=== PATIENT | male | born 1960 | race Caucasian/White ===

== ENCOUNTER 2017-07-30 14:02 | Emergency (ER) | payer BC ==
[2017-07-30 15:42] LABS: ABS Basophils 0 10^3/ul (0-0.2); ABS Eosinophils 0.2 10^3/ul (0-0.6); ABS Lymphocytes 1.5 10^3/ul (1.0-4.8); ABS Monocytes 0.6 10^3/ul (0-0.8); ABS Neutrophils 6.5 10^3/ul (1.5-7.7); ABS Nucleated RBC 0 10^3/ul; Eosinophil % 2.2 % (0-6); Hematocrit 41 % (42-52); Hemoglobin 13.8 g/dl (14.0-18.0); Lymphocyte % 16.6 % (25-47); Mean Corpuscular HGB Conc 34 g/dl (31-36); Mean Corpuscular Hemoglobin 29 pg (27-31); Mean Corpuscular Volume 87 fL (80-94); Mean Platelet Volume 9 um3 (7.4-10.4); Nucleated Red Blood Cells % 0.1; Platelet Count 289 10^3/ul (150-450); Red Blood Count 4.72 10^6/ul (4.0-5.4); Red Cell Distribution Width 13 % (10.5-15); White Blood Count 8.8 10^3/ul (3.5-10.8)
[2017-07-30 16:07] LABS: INR 0.89 (0.77-1.02)
[2017-07-30 16:19] LABS: EGFR Non-African American 28.4 (>60)
[2017-07-30] MEDS ORDERED: NS 0.9% 1000 ML* 1,000 ML IV ONE (16:49)
[2017-07-30 17:24] LABS: Urine Appearance Clear; Urine Blood Negative (Negative); Urine Color Yellow; Urine Ketones Negative (Negative); Urine Protein 2+(100 mg/dL) (Negative); Urine Urobilinogen Negative (Negative)
--- NOTE | 2017-07-30 19:19 | ED ---
Dat Vazquez Gabriel, scribed for Gomez Ray MD on 07/30/17 at 1519 . Hypertension - HPI Summary HPI Summary: This patient is a 56 year old M presenting to [facility] with a chief complaint of feeling slightly dizzy and 'off' since this 1000 this morning. On his way to work stopped ate as he stood up to leave he felt light headed. Patient reports flushed face, light headedness, and racing heart described as palpitations. He denies SOB, vision changes, and CP. He drove to [employer] and used the machine to test his blood pressure. It gave him a reading of 180/90 and told him to come to the emergency room. Additionally he reports aphasia that was similar to an episode he had when he had a complex migraine years ago. Recently he had a BP medication change and it has not controlled his BP that well. He is a IDDM and had a blood glucose of 100 at the time of the episode. - History of Current Complaint Chief Complaint: EDNeurologicalDeficit Stated Complaint: DIZINESS Hx Obtained From: Patient Onset/Duration: Started Hours Ago, Still Present Timing: Constant Reported Blood Pressure Prior To Arrival: 180/90 Associated Signs & Symptoms: Negative - SOB, vision changes, and CP, Other: - flushed face, light headedness, and racing heart described as palpitations - Allergies/Home Medications Allergies/Adverse Reactions: Allergies Allergy/AdvReac Type Severity Reaction Status Date / Time No Known Allergies Allergy Verified 02/22/15 11:05 Home Medications: Home Medications Albuterol inh POWDER (NF) [Proair Respiclick] 1 - 2 puff PO Q6HR PRN 07/30/17 [ History Confirmed 07/30/17] Aspirin EC Low Dose* [Ecotrin EC Low Dose 81 MG*] 162 mg PO DAILY 07/30/17 [ History Confirmed 07/30/17] Atenolol TAB* [Tenormin TAB* 25 MG] 75 mg PO DAILY 07/30/17 [History Confirmed 07/30/17] Atorvastatin* [Lipitor*] 80 mg PO DAILY 07/30/17 [History Confirmed 07/30/17] Cholecalciferol TAB* [Vitamin D TAB*] 2,000 units PO DAILY 07/30/17 [History Confirmed 07/30/17] Hydrochlorothiazide TAB* [Hydrodiuril TAB*] 25 mg PO QAM 07/30/17 [History Confirmed 07/30/17] Insulin ASPART (NF) [Novolog (NF)] 100 unit SUBCUT DAILY 07/30/17 [History Confirmed 07/30/17] Neomycin/Polymy/Dex OPHTH.OIN* [Maxitrol 0.1% Opth*] 1 applic BOTH EYES DAILY [History Confirmed 07/30/17] Quinapril (NF) [Accupril (NF)] 40 mg PO BID 07/30/17 [History Confirmed 07/30/17 ] Sildenafil (NF) [Viagra (NF)] 50 - 100 mg PO DAILY PRN 07/30/17 [History Confirmed 07/30/17] Silodosin(NF) [Rapaflo(NF)] 4 mg PO DAILY 07/30/17 [History Confirmed 07/30/17] Temazepam CAP* [Restoril CAP*] 15 - 30 mg PO QPM PRN 07/30/17 [History Confirmed 07/30/17] amLODIPine TAB* [Norvasc 5 mg TAB*] 5 mg PO QPM 07/30/17 [History Confirmed 03/09] PMH/Surg Hx/FS Hx/Imm Hx Endocrine/Hematology History: Reports: Hx Diabetes Cardiovascular History: Reports: Hx Hypertension Denies: Hx Pacemaker/ICD History: Reports: Hx Renal Disease Sensory History: Denies: Hx Hearing Aid Psychiatric History: Denies: Hx Panic Disorder - Surgical History Surgery Procedure, Year, and Place: VITRECTOMY FOR DIABETES - Immunization History Date of Tetanus Vaccine: UTD Date of Influenza Vaccine: 04/2017 Infectious Disease History: No Infectious Disease History: Denies: Traveled Outside the [place] in Last 30 Days - Family History Known Family History: Positive: Hypertension, Diabetes Negative: Respiratory Disease - Social History Occupation: Employed Full-time Alcohol Use: Rare Substance Use Type: Reports: None Hx Tobacco Use: No Smoking Status (MU): Never Smoked Tobacco Review of Systems Negative: Blurred Vision Positive: Palpitations. Negative: Chest Pain Negative: Shortness Of Breath Positive: Other - flushed face Neurological: Other - light headness, aphasia All Other Systems Reviewed And Are Negative: Yes Physical Exam - Summary Physical Exam Summary: Appearance: Well-appearing, Well-nourished Skin: Warm Eyes: Normal, EOMI, PERRL ENT: Mild flushing of the face Neck: Supple, nontender Respiratory: Clear to auscultation Cardiovascular: Normal s1s2 no murmurs Abdomen: Soft, nontender Musculoskeletal: Normal, Strength/ROM Intact Neurological: Normal, A&Ox3, cranial nerves 2-12 intact Psychiatric: Normal Triage Information Reviewed: Yes Vital Signs On Initial Exam: Initial Vitals Temp Pulse Resp BP Pulse Ox 97.3 F 81 16 172/82 98 07/30/17 14:05 07/30/17 14:05 07/30/17 14:05 07/30/17 14:05 07/30/17 14:05 Vital Signs Reviewed: Yes - Daniela Coma Scale Coma Scale Total: 15 Diagnostics - Vital Signs Vital Signs Temp Pulse Resp BP Pulse Ox 07/30/17 14:22 81 17 97 07/30/17 14:21 150/73 07/30/17 14:05 97.3 F 81 16 172/82 98 - Laboratory Lab Results: Lab Results 07/30/17 07/30/17 07/30/17 Range/Units 15:30 15:30 15:30 WBC (3.5-10.8) 10^3/ul RBC (4.0-5.4) 10^6/ul Hgb (14.0-18.0) g/dl Hct (42-52) % MCV (80-94) fL MCH (27-31) pg MCHC (31-36) g/dl RDW (10.5-15) % Plt Count (150-450) 10^3/ul MPV (7.4-10.4) um3 Neut % (Auto) (38-83) % Lymph % (Auto) (25-47) % Garvin % (Auto) (1-9) % Eos % (Auto) (0-6) % Baso % (Auto) (0-2) % Absolute Neuts (auto) (1.5-7.7) 10^3/ul Absolute Lymphs (auto) (1.0-4.8) 10^3/ul Absolute Monos (auto) (0-0.8) 10^3/ul Absolute Eos (auto) (0-0.6) 10^3/ul Absolute Basos (auto) (0-0.2) 10^3/ul Absolute Nucleated RBC 10^3/ul Nucleated RBC % INR (Anticoag Therapy) 0.89 (0.77-1.02) APTT 31.6 (26.0-36.3) seconds Sodium 133 (133-145) mmol/L Potassium 5.1 H (3.5-5.0) mmol/L Chloride 99 L (101-111) mmol/L Carbon Dioxide 28 (22-32) mmol/L Anion Gap 6 (2-11) mmol/L BUN 39 H (6-24) mg/dL Creatinine 2.38 H (0.67-1.17) mg/dL Est GFR ( Amer) 36.5 (>60) Est GFR (Non-Af Amer) 28.4 (>60) BUN/Creatinine Ratio 16.4 (8-20) Glucose 260 H (70-100) mg/dL Calcium 8.5 L (8.6-10.3) mg/dL Magnesium 1.9 (1.9-2.7) mg/dL Total Bilirubin 0.30 (0.2-1.0) mg/dL AST 21 (13-39) U/L ALT 29 (7-52) U/L Alkaline Phosphatase 81 (34-104) U/L Troponin I 0.01 (<0.04) ng/mL Total Protein 6.7 (6.4-8.9) g/dL Albumin 3.7 (3.2-5.2) g/dL Globulin 3.0 (2-4) g/dL Albumin/Globulin Ratio 1.2 (1-3) Triglycerides 395 mg/dL Cholesterol 166 mg/dL LDL Cholesterol 62 mg/dL HDL Cholesterol 25.2 mg/dL Urine Color Urine Appearance Urine pH (5-9) Ur Specific Holton (1.010-1.030) Urine Protein (Negative) Urine Ketones (Negative) Urine Blood (Negative) Urine Nitrate (Negative) Urine Bilirubin (Negative) Urine Urobilinogen (Negative) Ur Leukocyte Esterase (Negative) Urine WBC (Auto) (Absent) Urine RBC (Auto) (Absent) Urine Bacteria (Absent) Urine Glucose (Negative) Urine Ascorbic Acid (Negative) Blood Type A Positive Antibody Screen Negative 07/30/17 07/30/17 07/30/17 Range/Units 15:30 17:05 17:55 WBC 8.8 (3.5-10.8) 10^3/ul RBC 4.72 (4.0-5.4) 10^6/ul Hgb 13.8 L (14.0-18.0) g/dl Hct 41 L (42-52) % MCV 87 (80-94) fL MCH 29 (27-31) pg MCHC 34 (31-36) g/dl RDW 13 (10.5-15) % Plt Count 289 (150-450) 10^3/ul MPV 9 (7.4-10.4) um3 Neut % (Auto) 74.2 (38-83) % Lymph % (Auto) 16.6 L (25-47) % Garvin % (Auto) 6.8 (1-9) % Eos % (Auto) 2.2 (0-6) % Baso % (Auto) 0.2 (0-2) % Absolute Neuts (auto) 6.5 (1.5-7.7) 10^3/ul Absolute Lymphs (auto) 1.5 (1.0-4.8) 10^3/ul Absolute Monos (auto) 0.6 (0-0.8) 10^3/ul Absolute Eos (auto) 0.2 (0-0.6) 10^3/ul Absolute Basos (auto) 0 (0-0.2) 10^3/ul Absolute Nucleated RBC 0 10^3/ul Nucleated RBC % 0.1 INR (Anticoag Therapy) (0.77-1.02) APTT (26.0-36.3) seconds Sodium 135 (133-145) mmol/L Potassium 4.0 (3.5-5.0) mmol/L Chloride 101 (101-111) mmol/L Carbon Dioxide 28 (22-32) mmol/L Anion Gap 6 (2-11) mmol/L BUN 39 H (6-24) mg/dL Creatinine 2.34 H (0.67-1.17) mg/dL Est GFR ( Amer) 37.3 (>60) Est GFR (Non-Af Amer) 29.0 (>60) BUN/Creatinine Ratio 16.7 (8-20) Glucose 197 H (70-100) mg/dL Calcium 8.7 (8.6-10.3) mg/dL Magnesium (1.9-2.7) mg/dL Total Bilirubin (0.2-1.0) mg/dL AST (13-39) U/L ALT (7-52) U/L Alkaline Phosphatase (34-104) U/L Troponin I (<0.04) ng/mL Total Protein (6.4-8.9) g/dL Albumin (3.2-5.2) g/dL Globulin (2-4) g/dL Albumin/Globulin Ratio (1-3) Triglycerides mg/dL Cholesterol mg/dL LDL Cholesterol mg/dL HDL Cholesterol mg/dL Urine Color Yellow Urine Appearance Clear Urine pH 7.0 (5-9) Ur Specific Holton 1.010 (1.010-1.030) Urine Protein 2+(100 mg/dl) H (Negative) Urine Ketones Negative (Negative) Urine Blood Negative (Negative) Urine Nitrate Negative (Negative) Urine Bilirubin Negative (Negative) Urine Urobilinogen Negative (Negative) Ur Leukocyte Esterase Negative (Negative) Urine WBC (Auto) Absent (Absent) Urine RBC (Auto) Absent (Absent) Urine Bacteria Absent (Absent) Urine Glucose 3+(>=500 mg/dl) H (Negative) Urine Ascorbic Acid * H (Negative) Blood Type Antibody Screen Result Diagrams: 07/30/17 15:30 07/30/17 17:55 Lab Statement: Any lab studies that have been ordered have been reviewed, and results considered in the medical decision making process. - EKG 15:20 Cardiac Rate: NL EKG Rhythm: Sinus Rhythm - at [address] Segment: Normal Ectopy: None Hypertension Course/Dx - Course Assessment/Plan: blood pressures improved without medications here in ED, pt seen to have worsening CKD secondary to diabetes. Pt is aware of kidney issues, potassium corrected with IV fluids. Pt in no acute distress, has driver/guide appointment coming up soon and PMD appointment as well. Hospitalist team and I agreed that degree of kidney injury is consistent with chronic progressive patten, does not require acute treatment in light of normal electrolytes and improving blood pressures, pt agrees to and understands dc instructinos - Diagnoses Provider Diagnoses: Hypertension, Chronic kidney disease Discharge - Discharge Plan Condition: Improved Disposition: HOME Patient Education Materials: Diabetic Kidney Disease (ED) Referrals: Presley Pantoja MD [Primary Care Provider] - Additional Instructions: PLEASE MONITOR SUGARS CLOSELY AND GO TO PRIMARY CARE AND NEPHROLOGY APPOINTMENTS ALREADY SCHEDULED PLEASE RETURN IMMEDIATELY TO THE ER IF YOU HAVE ANY WORSENING OR CONCERNING SYMPTOMS PLEASE MAKE AN APPOINTMENT TO BE SEEN BY YOUR PRIMARY CARE DOCTOR WITHIN 1 WEEK The documentation as recorded by the Dat domínguez Gabriel accurately reflects the service I personally performed and the decisions made by me, Gomez Ray MD.
[2017-07-30 19:27] VITALS: BP 142/76
== END 2017-07-30 19:27 | disposition home or self-care (01) ==
LOC: ED 14:02
DX: I12.9 Hypertensive chronic kidney disease with stage 1 through stage 4 chronic kidney disease, or unspecified chronic kidney disease (principal); N18.9 Chronic kidney disease, unspecified; R06.02 Shortness of breath; R07.9 Chest pain, unspecified; R42 Dizziness and giddiness; R00.2 Palpitations
CPT/HCPCS: 36415; 80048; 80053; 80061; 81003; 81015; 83735; 84484; 85025; 85610; 85730; 86850; 86900; 86901; 93005; 96360; 99282

== ENCOUNTER 2019-01-20 19:00 | Inpatient (IN) | payer BC ==
--- OUTSIDE RECORDS SUMMARY | 2019-01-20 19:24 | XMS REPORT | Continuity of Care Document ---
:1960 External Reference #:[id number] Author Name Jaja Aparicio Care Team Providers Name Role Phone Presley Pantoja MD Primary Care Physician Unavailable Payers Date Identification Numbers Payment Provider Subscriber Policy Number: [id number] [facility] Erika Howe PayID: [id number] [address] [place] [address] Problems Active Problems Provider Date Multiple complications of type 1 diabetes Vamsi Guevara MD Onset: 12/13/2018 mellitus Cellulitis of right toe Vamsi Guevara MD Onset: 12/13/2018 Family History Date Family Member(s) Observation Comments General Heart Disease General Hypertension General Stroke General Cancer General Rheumatoid Arthritis Father Congestive Heart Failure (CHF) Father Alzheimer's Disease Mother Cancer Mother Arthritis First Brother Diabetes Social History Type Date Description Comments Sex Unknown Marital Status Lives With Spouse Occupation Currently Working ETOH Use Denies alcohol use Tobacco Use Start: Unknown Patient has never smoked Smoking Status Reviewed: 01/06/19 Patient has never smoked Exercise Type/Frequency Exercises sporadically Allergies, Adverse Reactions, Alerts Description No Known Drug Allergies Medications Active Medications SIG Qnty Indications Ordering Date Provider Amoxicillin/Clavulanate 1 tab by mouth 42tabs Mk D. 01/06/2019 Potassium two times per Krissy Stewart 500-125mg Tablets day Vascepa 2 a day Unknown 1gm Capsules Atenolol one a day Unknown 25mg Tablets Rapaflo one a day Unknown 4mg Capsules Vitamin D High Potency 1 by mouth Unknown 1000Unit every day Capsules Novolog use as directed Unknown 100Unit/ML Solution Atorvastatin Calcium 2 times a day Unknown 80mg Tablets Viagra as needed Unknown 100mg Tablets Aspirin 81 one a day Unknown 81mg Tablets DR Hydrochlorothiazide one a day Unknown 25mg Tablets Quinapril HCL 2 times a day. Unknown 40mg Tablets History Medications Amoxicillin/Clavulanate Take 1 Tablet Shamar Sharma, 01/04/2019 - Potassium By Mouth Two 01/06/2019 875-125mg Tablets Times Daily Amoxicillin/Clavulanate 1 tab by 60tabs L03.03 Mk Montero 12/06/2018 - Potassium mouth two 1 Drewquebeba, 01/05/2019 500-125mg Tablets times per day M.DFernando Augmentin one twice a Unknown - 875-125mg Tablets day with food 11/04/2018 Neomycin/Polymyxin/Dexamethaso Unknown - ne 10/23/2018 [id number] Suspension Temazepam Unknown - 15mg Capsules Unknown Vital Signs Date Vital Result Comment 01/06/2019 4:12pm Height 69.5 inches 5'9.50" Weight 208.00 lb Heart Rate 78 /min BP Systolic Sitting 146 mmHg BP Diastolic Sitting 80 mmHg Respiratory Rate 14 /min Body Temperature 98.0 F BMI (Body Mass Index) 30.3 kg/m2 12/13/2018 1:11pm Height 69.5 inches 5'9.50" Weight 206.00 lb Heart Rate 71 /min BP Systolic Sitting 151 mmHg BP Diastolic Sitting 79 mmHg O2 % BldC Oximetry 96 % room air BMI (Body Mass Index) 30.0 kg/m2 12/13/2018 9:50am Height 69.5 inches 5'9.50" Weight 208.00 lb Heart Rate 80 /min BP Systolic 116 mmHg BP Diastolic 80 mmHg Respiratory Rate 18 /min Body Temperature 98.3 F Pain Level 5 BMI (Body Mass Index) 30.3 kg/m2 12/12/2018 11:21am Height 69.5 inches 5'9.50" Weight 208.50 lb Heart Rate 72 /min BP Systolic Sitting 126 mmHg BP Diastolic Sitting 78 mmHg Respiratory Rate 14 /min Body Temperature 97.6 F BMI (Body Mass Index) 30.3 kg/m2 12/06/2018 11:40am Height 69.5 inches 5'9.50" Weight 205.50 lb Heart Rate 72 /min BP Systolic Sitting 150 mmHg BP Diastolic Sitting 78 mmHg Respiratory Rate 14 /min Body Temperature 97.3 F BMI (Body Mass Index) 29.9 kg/m2 11/05/2018 8:01am Height 69.5 inches 5'9.50" Weight 207.00 lb Heart Rate 72 /min BP Systolic Sitting 128 mmHg BP Diastolic Sitting 74 mmHg Respiratory Rate 14 /min Body Temperature 98.0 F BMI (Body Mass Index) 30.1 kg/m2 10/29/2018 7:58am Height 69.5 inches 5'9.50" Weight 209.00 lb Heart Rate 70 /min BP Systolic Sitting 130 mmHg BP Diastolic Sitting 70 mmHg Respiratory Rate 14 /min Body Temperature 97.6 F BMI (Body Mass Index) 30.4 kg/m2 2018 3:31pm Height 69.5 inches 5'9.50" Weight 213.25 lb Heart Rate 84 /min BP Systolic Sitting 128 mmHg BP Diastolic Sitting 70 mmHg Respiratory Rate 14 /min Body Temperature 97.6 F BMI (Body Mass Index) 31.0 kg/m2 Results Test Date Facility Test Result H/L Range Note Laboratory test 01/03/2019 [facility] Tissue Culture SEE RESULT 1, [address] [place] [address] [phone] Laboratory test 01/03/2019 [facility] Tissue Culture SEE RESULT 3, [address] [place] [address] [phone] Surgical Pathology SEE RESULT BELOW 5 Abo/RH Type 12/24/2018 [facility] Patient Blood A Positive [address] [place] [address] [phone] Laboratory test 12/24/2018 [facility] Hemoglobin A1c 10.4 % High 4.0- [address] (Glyco HGB) 5.6 [place] [address] [phone] Laboratory test 12/24/2018 [facility] Urine TP 207 mg/dL finding [address] [place] [address] [phone] Urine 12/24/2018 [facility] Urine Creatinine 69.57 mg/dL Microalbumin [address] [place] [address] [phone] Ur Microalbumin (mg/L) 1277.0 mg/L Urine Microalbumin/Creatinine 1835.5 High <31 Laboratory test 12/24/2018 [facility] Urine Creatinine 78.14 mg/ dL finding [address] [place] [address] [phone] Creatinine 24HR 12/24/2018 [facility] Urine Collection 24 hr Urine [address] [place] [address] [phone] Urine Total Volume 2250 mL Urine Creatinine/24 Hour 1758.15 mg/24Hr N 600-1800 Total Protein 24HR 12/24/2018 [facility] Urine Total 4657 High 0-[address] Protein/24HR mg/24[place] [address] [phone] Protein 12/24/2018 [facility] Total 6.6 g/dL 6.3 - Electrophoresis [address] Protein(Pep) 7.9 [place] [address] [phone] Albumin 3.3 g/dL Abnormal 3.4-4.7 Alpha-1 Globulin 0.2 g/dL 0.1-0.3 Alpha-2 Globulin 1.1 g/dL Abnormal 0.6-1.0 Beta Globulin 1.0 g/dL 0.7-1.2 Gamma Globulin 1.0 g/dL 0.6-1.6 Albumin/Globulin Ratio 0.97 Impression See Comment 7 Protein 12/24/2018 [facility] Total 4095 Abnormal <229 [address] Protein(Pep) mg/24h Urine (24HR) [place] [address] Urine [phone] Collection Duration 24 h Urine Volume 2250 mL Total Protein Concentration 182 mg/dL Albumin 68 % 9 Alpha-1 Globulin 3 % 10 Alpha-2 Globulin 7 % 11 Beta Globulin 9 % 12 Gamma Globulin 12 % 13 Albumin/Globulin Ratio 2.17 Impression See Comment 14 Laboratory test 12/24/2018 [facility] Magnesium 1.8 mg/dL Low 1.9-2.7 [address] [place] [address] [phone] Phosphorus 3.4 mg/dL N 2.5-5.0 16 Pthi 12/24/2018 [facility] Calcium (PTH Intact) 9.0 mg/dL N 8.6-10.[address] [place] [address] [phone] PTH Intact 72.8 pg/mL N 12-88 [place]/Lambda Free 12/24/2018 [facility] [place] Free 6.21 mg/dL Abnormal 17 Light Chains Ser [address] [place] [address] [phone] Lambda Free Light Chain 4.04 mg/dL Abnormal 18 [place]/Lambda Free Light Chain 1.54 19 Iron & Iron Binding 12/24/2018 [facility] Iron 64 g/dL N 50- [address] [place] [address] [phone] Unsaturated Iron Binding < 271 g/dL Total Iron Binding Capacity 286 g/dL N 250-450 Transferrin 204 mg/dL N 203-362 % Iron Saturation 22 % N 15-55 Creatinine 12/24/2018 [facility] Creatinine, 2.68 High 0.51- 0.[address] Serum mg/[place] [address] [phone] Creatinine Clearance 41 mL/min Low 97-137 Urine Collection Time 24 hr Urine Total Volume 2250 mL Comp Metabolic Panel 12/24/2018 [facility] Sodium 140 mmol/L N 135-[address] [place] [address] [phone] Potassium 4.7 mmol/L N 3.5-5.0 Chloride 105 mmol/L N 101-111 Co2 Carbon Dioxide 26 mmol/L N 22-32 Anion Gap 9 mmol/L N 2-11 Glucose 177 mg/dL High 70-100 Blood Urea Nitrogen 41 mg/dL High 6-24 Creatinine 2.63 mg/dL High 0.67-1.17 BUN/Creatinine Ratio 15.6 N 8-20 Calcium 9.4 mg/dL N 8.6-10.3 Total Protein 6.7 g/dL N 6.4-8.9 Albumin 3.9 g/dL N 3.2-5.2 Globulin 2.8 g/dL N 2-4 Albumin/Globulin Ratio 1.4 N 1-3 Total Bilirubin 0.40 mg/dL N 0.2-1.0 Alkaline Phosphatase 129 U/L High 34-104 Alt 24 U/L N 7-52 Ast 22 U/L N 13-39 Egfr Non- 25.1 >60 Egfr 30.4 >60 20 CBC Auto 12/24/2018 [facility] White Blood 11.0 10^3/uL High 3.5-10.[address] [place] [address] [phone] Red Blood Count 4.75 10^6/uL N 4.18-5.48 Hemoglobin 13.3 g/dL Low 14.0-18.0 Hematocrit 41 % Low 42-52 Mean Corpuscular Volume 86 fL N 80-94 Mean Corpuscular Hemoglobin 28 pg N 27-31 Mean Corpuscular HGB Conc 33 g/dL N 31-36 Red Cell Distribution Width 14 % N 10.5-15 Platelet Count 217 10^3/uL N 150-450 Mean Platelet Volume 9.6 fL N 7.4-10.4 Abs Neutrophils 6.3 10^3/uL N 1.5-7.7 Abs Lymphocytes 1.7 10^3/uL N 1.0-4.8 Abs Monocytes 0.7 10^3/uL N 0-0.8 Abs Eosinophils 2.3 10^3/uL High 0-0.6 Abs Basophils 0.1 10^3/uL N 0-0.2 Abs Nucleated RBC 0.0 10^3/uL Granulocyte % 56.9 % Lymphocyte % 15.4 % Monocyte % 6.3 % Eosinophil % 20.5 % Basophil % 0.9 % Nucleated Red Blood Cells % 0.0 Neutrophil Cytoplasmic 12/24/2018 [facility] C-Anca Negative Negative AB [address] [place] [address] [phone] P-Anca Negative Negative 21 Laboratory test 12/24/2018 [facility] Anti Nuclear 0.6 U [address] [place] [address] [phone] CBC Auto Diff 12/12/2018 [facility] White Blood 11.3 High 3.5- [address] Count 10^3/uL .8 [place] [address] [phone] Red Blood Count 4.64 10^6/uL N 4.18-5.48 Hemoglobin 13.1 g/dL Low 14.0-18.0 Hematocrit 40 % Low 42-52 Mean Corpuscular Volume 86 fL N 80-94 Mean Corpuscular Hemoglobin 28 pg N 27-31 Mean Corpuscular HGB Conc 33 g/dL N 31-36 Red Cell Distribution Width 14 % N 10.5-15 Platelet Count 322 10^3/uL N 150-450 Mean Platelet Volume 9.0 fL N 7.4-10.4 Abs Neutrophils 7.8 10^3/uL High 1.5-7.7 Abs Lymphocytes 1.9 10^3/uL N 1.0-4.8 Abs Monocytes 0.6 10^3/uL N 0-0.8 Abs Eosinophils 0.9 10^3/uL High 0-0.6 Abs Basophils 0.0 10^3/uL N 0-0.2 Abs Nucleated RBC 0.0 10^3/uL Granulocyte % 69.2 % Lymphocyte % 17.1 % Monocyte % 5.7 % Eosinophil % 7.6 % Basophil % 0.4 % Nucleated Red Blood Cells % 0.0 Laboratory test 12/12/2018 [facility] C Reactive 6.79 mg/L N < 8.[address] [place] [address] [phone] Comp Metabolic 12/12/2018 [facility] Sodium 140 mmol/L N 135- [address] [place] [address] [phone] Chloride 105 mmol/L N 101-111 Co2 Carbon Dioxide 27 mmol/L N 22-32 Glucose 218 mg/dL High 70-100 Blood Urea Nitrogen 39 mg/dL High 6-24 Creatinine 2.84 mg/dL High 0.67-1.17 BUN/Creatinine Ratio 13.7 N 8-20 Calcium 8.7 mg/dL N 8.6-10.3 Total Protein 6.7 g/dL N 6.4-8.9 Albumin 4.0 g/dL N 3.2-5.2 Globulin 2.7 g/dL N 2-4 Albumin/Globulin Ratio 1.5 N 1-3 Total Bilirubin 0.30 mg/dL N 0.2-1.0 Alkaline Phosphatase 121 U/L High 34-104 Alt 24 U/L N 7-52 Ast 13 U/L N 13-39 Egfr Non- 23.0 >60 Egfr 27.8 >60 23 Potassium 5.1 mmol/L High 3.5-5.0 Anion Gap 8 mmol/L N 2-11 1 RT GREAT TOE BONE 2 SEE RESULT BELOW Name: ERIKA HOWE : [address]: Shamar Sharma MD Acct: [id number] Unit: [id number] AGE: 58 Location: WOUND Re01/03/19 SEX: M Status: REG REF SPEC: [id number] AJITH: 01/03/[address]: Shamar Sharma MD REQ: [id number] RECD: 01/03/19 STATUS: RES OTHR DR: Presley Pantoja MD _ SOURCE: TISSUE SPDESC:RIGHT BIG ORDERED: Tissue Cult/GS COMMENTS: RT GREAT TOE BONE Procedure Result Reported Site Tissue Gram Stain Final 01/03/19- 1454 ML 2+ Neutrophils No Organisms Seen Tissue Culture Preliminary 01/04/19- 1244 ML No Growth Day 1 * ML - Main Lab . END OF REPORT DEPARTMENT OF PATHOLOGY, [address] [place] [address] Blanco Collier M.D. Director [facility] # [id number] 3 rt great toe 4 SEE RESULT BELOW Name: ERIKA HOWE : [address]: Shamar Sharma MD Acct: [id number] Unit: [id number] AGE: 58 Location: WOUND Re01/03/19 SEX: M Status: REG REF SPEC: [id number] AJITH: 01/03/19-[address]: Shamar Sharma MD REQ: [id number] RECD: 01/03/19 STATUS: RES [facility] DR: Presley Pantoja MD _ SOURCE: TISSUE [facility]:RIGHT ORDERED: Tissue Cult/GS COMMENTS: rt great toe Procedure Result Reported Site Tissue Gram Stain Final 01/03/19- 1457 ML 2+ Neutrophils No Organisms Seen Tissue Culture Preliminary 01/06/19- 1132 ML Organism 1 ENTEROCOCCUS FAECALIS Quantity 1+ Organism 2 OCHROMOBACTRUM ANTHROPI Quantity 1+ * ML - Main Lab . END OF REPORT DEPARTMENT OF PATHOLOGY, [address] [place] [address] Blanco Collier M.D. Director [facility] # [id number] 5 SEE RESULT BELOW Name: ERIKA HOWE : [address]: Shamar Sharma MD Acct: [id number] Unit: [id number] AGE: 58 Location: WOUND Re01/03/19 SEX: M Status: REG REF SPEC: [id number] AJITH: 01/03/[address] [facility] [address]: Shamar Sharma MD REQ: [id number] RECD: 01/03/19 STATUS: LAMBERT TAVERA DR: Mk Pantoja MD _ ORDERED: LEVEL 3 FINAL DIAGNOSIS Bone, right great toe, biopsy: --Minute fragment of bone with features compatible with chronic osteomyelitis. -- Vascular and inflamed fibroconnective tissue. -- No evidence of malignancy identified. CLINICAL HISTORY Diabetic with toe ulceration PRE-OPERATIVE DIAGNOSIS Diabetic foot ulcer-positive osteo per MRI POST-OPERATIVE DIAGNOSIS Kraft grade 3 right great toe GROSS DESCRIPTION The specimen is received in formalin labeled, Bone Right Great Toe, and consists of a 0.5 x 0.4 x 0.2 cm white pink to red-brown irregular soft tissue fragment. Calcified bone is not identified. Entirely submitted, one cassette. Signed by and Reported on: Blanco Collier MD 1143 END OF REPORT DEPARTMENT OF PATHOLOGY, [address] [place] [address] Blanco Collier M.D. Director [facility] # [id number] 6 Therapeutic target for the treatment of diabetes mellitus patients is <7% HBA1C, and in selective patients <6.0%. Please refer to [place] [employer] diabetic care guidelines for further information. 7 RESULT: No apparent monoclonal protein on serum electrophoresis. Test Performed by: [facility] [place] [address] 8 ADDITIONAL INFORMATION On 01/16/2017 the total protein assay method changed resulting in approximately a 15% increase in protein values. 9 2785 mg/24 h 10 123 mg/24 h 11 287 mg/24 h 12 369 mg/24 h 13 491 mg/24 h 14 All fractions present, no apparent M-spike. Due to the elevated protein, suggest monoclonal protein study ([facility]) if clinically indicated. Test Performed by: [facility] - [address] [address] Test Performed by: [facility] - [address] [address] 15 FASTING 16 FASTING 17 REFERENCE VALUE 0.3300-1.94 18 REFERENCE VALUE 0.5700-2.63 19 REFERENCE VALUE 0.2600-1.65 Test Performed by: [facility] - [address] [address] 20 Because ethnic data is not always readily available, this report includes an eGFR for both -Americans and non- Americans. The National Kidney Disease Education Program (NKDEP) does not endorse the use of the MDRD equation for patients that are not between the ages of 18 and 70, are , have extremes of body size, muscle mass, or nutritional status, or are non- or non-. According to the National Kidney Foundation, irrespective of diagnosis, the stage of the disease is based on the level of kidney function: Stage Description GFR(mL/min/1.73 m(2)) 1 Kidney damage with normal or decreased GFR 90 2 Kidney damage with mild decrease in GFR 60-89 3 Moderate decrease in GFR 30-59 4 Severe decrease in GFR 15-29 5 Kidney failure <15 (or dialysis) 21 Negative for cANCA and pANCA patterns by immunofluorescence. ADDITIONAL INFORMATION This test was developed and its performance characteristics determined by [facility] in a manner consistent with CLIA requirements. This test has not been cleared or approved by the U.S. Food and Drug Administration. Test Performed by: [facility] - [address] [address] 22 REFERENCE VALUE <=1.0 (Negative) Test Performed by: [facility] - [address] [address] 23 Because ethnic data is not always readily available, this report includes an eGFR for both -Americans and non- Americans. The National Kidney Disease Education Program (NKDEP) does not endorse the use of the MDRD equation for patients that are not between the ages of 18 and 70, are , have extremes of body size, muscle mass, or nutritional status, or are non- or non-. According to the National Kidney Foundation, irrespective of diagnosis, the stage of the disease is based on the level of kidney function: Stage Description GFR(mL/min/1.73 m(2)) 1 Kidney damage with normal or decreased GFR 90 2 Kidney damage with mild decrease in GFR 60-89 3 Moderate decrease in GFR 30-59 4 Severe decrease in GFR 15-29 5 Kidney failure <15 (or dialysis) Procedures Date Code Description Status 01/03/2019 60034 Debridement Tissue/Muscle/Bone Completed Encounters Type Date Location Provider Dx Diagnosis Office Visit 12/13/2018 Orthopedic Vamsi Guevara, L97.419 Non-prs chr ulcer 9:30a [facility] of right heel and midfoot w unsp severt E10.621 Type 1 diabetes mellitus with foot ulcer L03.031 Cellulitis of right toe Office Visit 12/13/2018 1:00p [facility] Angela Yanez, N18.4 Chronic kidney MD disease, stage 4 (severe) E87.5 Hyperkalemia 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 right toe Diseases E10.621 Type 1 diabetes mellitus with foot ulcer L97.529 Non-pressure chronic ulcer oth prt left foot w unsp severity Office Visit 11/05/2018 [facility] Lin Lucas L03.031 Cellulitis of 8:00a For Infectious ERIKA Bray right toe Diseases E10.9 Type 1 diabetes mellitus without complications Office Visit 10/29/2018 [facility] Lin Shayy L03.031 Cellulitis of 8:00a For Infectious ERIKA Bray right toe Diseases Office Visit 2018 [facility] Mk Montero L03.031 Cellulitis of 3:40p For Infectious Krissy Stewart right toe Diseases Plan of Treatment Future Appointment(s):01/22/2019 9:30 am - Mk Stewart M.D. at [facility] Infectious Dcgbgnrg41/28/2019 10:00 am - Angela Yanez MD at [facility] Psxmuxbofh39/16/2019 8:50 am - Mk Stewart M.D. at [facility] Infectious Gtyfozfm02/17/2019 - Mk Stewart M.D.E10.621 Type 1 diabetes mellitus with foot ulcerComments:continue augmentin through his trip which will get him to about 6 weeks of antibiotics, may extend from there pending his progress, we discussed alternative of IV antibiotics which he can't do at this point with his upcoming work trip, and it is not clear that IV would make a difference in otherwise reasonable [id number] Other chronic osteomyelitis, right ankle and foot
[2019-01-20] MEDS ORDERED: NS 0.9% 1000 ML** 3,000 ML IV ONE (20:50)
--- NOTE | 2019-01-20 20:52 | ED ---
HPI Febrile Illness - HPI Summary HPI Summary: Patient with history of diabetes and chronic infection of great right toe followed by wound care and Dr. Hui complains of increase in pain, redness and swelling of right great toe and fever 2 days. Patient on daily amoxicillin by mouth. Also states recent trip to [facility] from which she just returned. Denies new injury, cough, sore throat, CP, SOB, N/V 60, abdominal pain, change in urine, change in BM. Medical history is HTN, DM , HDL.. - History of Current Complaint Chief Complaint: EDSoftTissueLowExtr Time Seen by Provider: 01/20/19 20:45 Hx Obtained From: Patient Onset/Duration: Started Days Ago Timing: Constant Initial Severity: Moderate Current Severity: Moderate Pain Intensity: 6 Pain Scale Used: 0-10 Numeric Associated Signs and Symptoms: Negative - Allergy/Home Medications Allergies/Adverse Reactions: Allergies Allergy/AdvReac Type Severity Reaction Status Date / Time No Known Allergies Allergy Verified 01/20/19 19:15 Home Medications: Home Medications Acetaminophen [Tylenol] 650 mg PO Q4H 01/20/19 [History Confirmed 01/20/19] PMH/Surg Hx/FS Hx/Imm Hx Endocrine/Hematology History: Reports: Hx Diabetes Cardiovascular History: Reports: Hx Hypertension Denies: Hx Pacemaker/ICD Respiratory History: Denies: Hx Asthma History: Reports: Hx Renal Disease Sensory History: Denies: Hx Hearing Aid Opthamlomology History: Denies: Hx Legally Blind EENT History: Denies: Hx Deafness Neurological History: Denies: Hx Developmental Delay Psychiatric History: Denies: Hx Autism, Hx Panic Disorder - Surgical History Surgery Procedure, Year, and Place: VITRECTOMY FOR DIABETES - Immunization History Date of Tetanus Vaccine: UTD Date of Influenza Vaccine: 04/2017 Infectious Disease History: Yes Infectious Disease History: Reports: Traveled Outside the [place] in Last 30 Days - Family History Known Family History: Positive: Hypertension, Diabetes Negative: Respiratory Disease - Social History Alcohol Use: Rare Substance Use Type: Reports: None Hx Tobacco Use: No Smoking Status (MU): Never Smoked Tobacco Review of Systems Positive: Fever Eyes: Negative ENT: Negative Cardiovascular: Negative Respiratory: Negative Gastrointestinal: Negative Genitourinary: Negative Musculoskeletal: Negative Skin: Other Neurological: Negative Psychological: Normal All Other Systems Reviewed And Are Negative: Yes Physical Exam - Summary Physical Exam Summary: Positive erythema to right toe and dorsal surface of distal right foot. Chronic wound appears clean and dry and intact with no purulent discharge. PMS intact in right foot. Triage Information Reviewed: Yes Vital Signs On Initial Exam: Initial Vitals Temp Pulse Resp BP Pulse Ox 100.8 F 96 16 128/68 94 01/20/19 19:13 01/20/19 19:13 01/20/19 19:13 01/20/19 19:13 01/20/19 19:13 Vital Signs Reviewed: Yes Appearance: Positive: Well-Appearing Skin: Positive: Warm Head/Face: Positive: Normal Head/Face Inspection Eyes: Positive: Normal Neck: Positive: Supple Respiratory/Lung Sounds: Positive: Clear to Auscultation Cardiovascular: Positive: Normal Abdomen Description: Positive: Nontender Musculoskeletal: Positive: Normal Neurological: Positive: Normal Psychiatric: Positive: Normal AVPU Assessment: Alert - Parachute Coma Scale Best Eye Response: 4 - Spontaneous Best Motor Response: 6 - Obeys Commands Best Verbal Response: 5 - Oriented Coma Scale Total: 15 Diagnostics - Vital Signs Vital Signs Temp Pulse Resp BP Pulse Ox 01/20/19 19:13 100.8 F 96 16 128/68 94 - Laboratory Result Diagrams: 01/22/19 06:09 01/23/19 05:28 Lab Statement: Any lab studies that have been ordered have been reviewed, and results considered in the medical decision making process. Course/Dx - Course Course Of Treatment: Patient with history of diabetes and chronic infection of great right toe followed by wound care and Dr. Hui complains of increase in pain, redness and swelling of right great toe and fever 2 days. Patient on daily amoxicillin by mouth. Also states recent trip to [facility] from which she just returned. Denies new injury, cough, sore throat, CP, SOB, N/V 60, abdominal pain, change in urine, change in BM. Medical history is HTN, DM , HDL.. Physical exam:Positive erythema to right toe and dorsal surface of distal right foot. Chronic wound appears clean and dry and intact with no purulent discharge. PMS intact in right foot. Temperature 100.7. Vital signs otherwise within normal limits. WBC 15.2. Labs otherwise unremarkable except for elevated glucose. Patient started on vancomycin IV. Admitted to hospitalist - Diagnoses Provider Diagnoses: Cellulitis Discharge - Sign-Out/Discharge Documenting (check all that apply): Patient Departure Patient Received Moderate/Deep Sedation with Procedure: No - Discharge Plan Condition: Stable Disposition: ADMITTED TO [facility] - [facility] Disposition and Condition Condition: STABLE Disposition: Admitted to [facility]
[2019-01-20 21:44] LABS: ABS Basophils 0.1 10^3/ul (0-0.2); ABS Lymphocytes 0.8 10^3/ul (1.0-4.8); ABS Monocytes 1.1 10^3/ul (0-0.8); ABS Neutrophils 13.2 10^3/ul (1.5-7.7); Eosinophil % 0.3 %; Hematocrit 37 % (42-52); Hemoglobin 12.3 g/dL (14.0-18.0); Mean Corpuscular HGB Conc 33 g/dL (31-36); Mean Corpuscular Hemoglobin 29 pg (27-31); Mean Corpuscular Volume 86 fL (80-94); Mean Platelet Volume 8.6 fL (7.4-10.4); Platelet Count 291 10^3/uL (150-450); Red Blood Count 4.31 10^6 /uL (4.18-5.48); Red Cell Distribution Width 14 % (10-15); White Blood Count 15.2 10^3/uL (3.5-10.8)
[2019-01-20 22:00] LABS: Albumin 3.7 g/dL (3.2-5.2); Albumin/Globulin Ratio 1.1 (1-3); BUN/Creatinine Ratio 18.8 (8-20); C Reactive Protein 72.56 mg/L (<8.01); Calcium 8.5 mg/dL (8.6-10.3); EGFR African American 27.4 (>60); EGFR Non-African American 22.6 (>60); Globulin 3.5 g/dL (2-4); Potassium 4.7 mmol/L (3.5-5.0); Total Bilirubin 0.6 mg/dL (0.2-1.0); Total Protein 7.2 g/dL (6.4-8.9)
[2019-01-20] MEDS ORDERED: Vancomycin(*) 1,000 MG in NS 0.9% 250 ML* 250 ML IVPB ONE (22:15)
[2019-01-21] MEDS ORDERED: Ibuprofen TAB* 600 MG PO ONE (00:51)
[2019-01-21] MEDS ORDERED: Morphine 4 MG/ML VIAL (1 ml) 4 MG/ML VIAL IV ONE (00:51)
[2019-01-21] MEDS ORDERED: Ondansetron INJ* 2 MG/ML VIAL IV ONE (00:51)
--- NOTE | 2019-01-21 01:07 | HP ---
History of Present Illness - History of Present Illness Reason for Visit: Worseing Right Great toe cellulitis. History of Present Illness: 58yoM with Type 1 DM since age 8, HTN, CKD Stage IV and chronic right great toe infection along with possible osteomyelitis of the right great toe on going for 3 months. Has been on chronic anti-biotic treatment for the wound. Went to [facility] for work related trip. Was doing well however the last two days while he was there it became more red, swollen and painful. His trip was over around this time so he returned back to [facility] last night. And since coming to [facility] he's been having fever, chills and vomiting. His forced to come to ER. - Past Medical History Cardiac: HTN, Hyperlipidemia Pulmonary: Asthma - Mild excercise induced. Musculoskeletal: Other - Possible Osteomylitis of Right Great toe Renal/: Chronic renal insuff - Stage IV Endocrine: Diabetes - Type 1 for 50years. On Insulin pump. Dermatology: Cellulitis - Past Surgical History Past Surgical History: Other - Bilateral vitreoctomy of the eyes with poor peripheral vision. 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 Alcohol: None Drugs: None Lives: With Family Review of Systems - Measurements Intake and Output: Intake and Output Last 24 Hours 01/18/19 01/19/19 01/20/19 01/21/19 06:59 06:59 06:59 06:59 Weight 205 lb - Review of Systems Constitutional Symptoms: Positive: Fever Dermatology: Positive: Rash Pulmonary: Negative: Cough Cardiology: Negative: Chest Pain, Shortness of Breath Gastroenterology: Positive: Vomiting Musculoskeletal: Negative: Joint Pain Endocrinology: Positive: Diabetes Mellitus Neurology: Negative: Headache Psychiatry: Negative: Depression Objective Vital Signs - 8 hr 01/20/19 01/20/19 01/21/19 19:13 21:52 00:47 Temperature 100.8 F 98.6 F 100.0 F Pulse Rate 96 81 87 Respiratory 16 16 19 Rate Blood Pressure 128/68 143/64 162/85 (mmHg) O2 Sat by Pulse 94 95 95 Oximetry 01/21/19 00:58 Temperature Pulse Rate Respiratory 19 Rate Blood Pressure (mmHg) O2 Sat by Pulse Oximetry Oxygen Devices in Use Now: None Eyes: No Scleral Icterus, PERRLA Ears/Nose/Mouth/Throat: NL Teeth, Lips, Gums, Clear Oropharnyx, Mucous Membranes Moist Neck: NL Appearance and Movements; NL JVP, Trachea Midline, No Thyroid Enlargement, Masses Respiratory: Clear to Auscultation Cardiovascular: NL Sounds; No Murmurs; No JVD, RRR, No Edema Abdominal: NL Sounds; No Tenderness; No Distention Extremities: - - Right great toe planter aspect small 2mm punctate wound with erythema on the dorsal aspect until the TMA. Minimal tenderness to palpation. Neurological: Alert and Oriented x 3 Result Diagrams: 01/20/19 21:32 01/20/19 21:32 Diagnostic Imaging: CXR No evidence of PNA or CHF. Assess/Plan/Problems-Billing Assessment: Sepsis secondary to cellulites r/o osteomyelitis Hx of DM on insulin pump. Hx of HTN Hx of Dyslipidemia Hx of CKD Stage IV Plan Vanco given in ER but only 1gm will add extra 500mg to load. Repeat random vanco and dose accordingly. Zosyn started. Will consult ID to evaluate the patient's ABx regimen. Will discuss with ID regarding further testing with MRI to r/o osteomyelitis. Restart home medications. Continue Insulin pump. DVT PPx Heparin subcu. - Patient Problems (1) Sepsis Current Visit: Yes Status: Acute Priority: High (2) Cellulitis Current Visit: Yes Status: Chronic Priority: Medium Code(s): L03.90 - CELLULITIS, UNSPECIFIED SNOMED Code(s): 960886598
[2019-01-21] MEDS ORDERED: ZOSYN 3.375 GM x ONE DOSE over 30 miuntes IVPB ×2 (02:10)
[2019-01-21] MEDS ORDERED: Vancomycin per Pharmacy* NOTE FOLLOW UP PRN (02:35)
[2019-01-21] MEDS ORDERED: Vancomycin(*) 500 MG in NS 0.9% 250 ML* 250 ML IVPB ONE (03:00)
[2019-01-21] MEDS: Heparin VIAL(*) 5000 UNITS/ML VIAL (FIVE THOUSAND) SUBCUT SCH ×3 (05:38→21:14)
[2019-01-21 07:02] LABS: Urine Appearance Cloudy; Urine Bacteria Absent (Absent); Urine Bilirubin Negative (Negative); Urine Blood 1+ (Negative); Urine Color Yellow; Urine Glucose 1+(50 mg/dL) (Negative); Urine Ketones Negative (Negative); Urine Nitrite Negative (Negative); Urine Protein 2+(100 mg/dL) (Negative); Urine Red Blood Cell Trace(0-2/hpf) (Absent); Urine Specific Gravity 1.013 (1.010-1.030); Urine Squamous Epithelial Cell Present (Absent); Urine Urobilinogen Negative (Negative); Urine White Blood Cell Trace(0-5/hpf) (Absent)
[2019-01-21 07:22] LABS: ABS Basophils 0.1 10^3/ul (0-0.2); ABS Eosinophils 0.2 10^3/ul (0-0.6); ABS Lymphocytes 1.7 10^3/ul (1.0-4.8); ABS Monocytes 1.1 10^3/ul (0-0.8); ABS Neutrophils 9.2 10^3/ul (1.5-7.7); Eosinophil % 1.5 %; Hematocrit 34 % (42-52); Hemoglobin 11.2 g/dL (14.0-18.0); Mean Corpuscular HGB Conc 33 g/dL (31-36); Mean Corpuscular Hemoglobin 28 pg (27-31); Mean Corpuscular Volume 87 fL (80-94); Mean Platelet Volume 8.9 fL (7.4-10.4); Platelet Count 257 10^3/uL (150-450); Red Blood Count 3.93 10^6 /uL (4.18-5.48); Red Cell Distribution Width 14 % (10-15); White Blood Count 12.3 10^3/uL (3.5-10.8)
[2019-01-21 07:38] LABS: BUN/Creatinine Ratio 20.4 (8-20); Calcium 7.5 mg/dL (8.6-10.3); EGFR African American 30.8 (>60); EGFR Non-African American 25.5 (>60); Potassium 4.3 mmol/L (3.5-5.0)
[2019-01-21] MEDS: INSULIN PUMP CONTROLLER SCH ×4 (08:00→21:14)
[2019-01-21] MEDS ORDERED: Piperacillin/Tazobac ADVAN(*) 3.375 GM in NS 0.9% 100 ML* 100 ML IVPB SCH ×2 (08:00→17:00)
[2019-01-21] MEDS: Atorvastatin* 80 MG TAB PO SCH (08:08)
[2019-01-21] MEDS: Cholecalciferol TAB* 1000 UNITS PO SCH (08:08)
[2019-01-21] MEDS: Aspirin EC TAB* 81 MG TAB.EC PO SCH (08:10)
[2019-01-21] MEDS: Lisinopril TAB* 10 MG PO SCH ×2 (08:10→21:14)
[2019-01-21] MEDS: Atenolol TAB* 25 MG PO SCH (08:10)
[2019-01-21] MEDS: Hydrochlorothiazide TAB* 25 MG PO SCH (08:10)
[2019-01-21] MEDS ORDERED: Insulin ASPART (NF) 100 UNIT/ML VIAL SUBCUT SCH (09:00)
--- NOTE | 2019-01-21 13:37 | PN ---
Subjective Date of Service: 01/21/19 Interval History: HOSPITALIST PROGRESS NOTE Patient seen and examined at bedside. Care reviewed and d/w Bhavna Ballard RN. He thinks his toe looks better today. Edema went down and erythema is receding. Family History: Unchanged from Admission Social History: Unchanged from Admission Past Medical History: Unchanged from Admission Objective Active Medications: Acetaminophen (Tylenol Tab*) 650 mg PO Q4H PRN PRN Reason: FEVER/PAIN Amlodipine Besylate (Norvasc Tab*) 5 mg PO QPM [facility] Aspirin (Aspirin Ec Tab*) 162 mg PO DAILY [facility] Last Admin: 01/21/19 08:10 Dose: 162 mg Atenolol (Tenormin Tab*) 75 mg PO DAILY [facility] Last Admin: 01/21/19 08:10 Dose: 75 mg Atorvastatin Calcium (Lipitor*) 80 mg PO DAILY [facility] Last Admin: 01/21/19 08:08 Dose: 80 mg Cholecalciferol (Vitamin D Tab*) 2,000 units PO DAILY [facility] Last Admin: 01/21/19 08:08 Dose: 2,000 units Heparin Sodium (Porcine) (Heparin Vial(*)) 5,000 units SUBCUT Q8HR [facility] Last Admin: 01/21/19 05:38 Dose: 5,000 units Hydrochlorothiazide (Hydrodiuril Tab*) 25 mg PO QAM [facility] Last Admin: 01/21/19 08:10 Dose: 25 mg Cefepime HCl (Maxipime 2 Gm In Dextrose Duplex (*)) 2 gm in 50 mls @ 100 mls/ hr IV Q12H [facility] Lisinopril (Prinivil Tab*) 40 mg PO BID [facility]; Protocol Last Admin: 01/21/19 08:10 Dose: 40 mg Vital Signs - 8 hr 01/21/19 01/21/19 01/21/19 07:45 08:00 11:10 Temperature 97.5 F 98 F Pulse Rate 66 73 Respiratory 16 17 16 Rate Blood Pressure 137/66 137/63 (mmHg) O2 Sat by Pulse 99 96 Oximetry Oxygen Devices in Use Now: None Appearance: Pleasant gentleman sitting up in bed in NAD. Eyes: No Scleral Icterus Ears/Nose/Mouth/Throat: Mucous Membranes Moist Neck: Trachea Midline Respiratory: Symmetrical Chest Expansion and Respiratory Effort, Clear to Auscultation Cardiovascular: RRR - Normal S1 and S2 Extremities: - - R hallux - small wound on plantar area with no drainage; diffuse edema extending to forefoot with erythema. No tenderness on palpation and no fluctuation Neurological: Alert and Oriented x 3, NL Muscle Strength and Tone, - - Sensation decreased in both feet Result Diagrams: 01/21/19 06:29 01/21/19 06:29 Assess/Plan/Problems-Billing Assessment: Mr Howe is a 58 yo M with PMH of type 1 DM (since age 8, managed with insulin pump, follows at [facility]), HTN, dyslipidemia, CKD Stage IV, who presents to ED with worsening edema/erythema of right hallux, found to have cellulitis. - Patient Problems (1) Sepsis Comment: - Presentation compatible with sepsis, with leukocytosis, fever, tachycardia. - Source is right hallux osteomyelitis. (2) Osteomyelitis due to type 1 diabetes mellitus Comment: - Patient is being followed by ID and wound clinic as outpatient. - MRI done 12/30/18 showed osteomyelitis involving the distal phalanx of right hallux. - Wound culture from 01/03/19 grew Propionibacterium, Enterococcus faecalis, and Ochromobactrum - ID consult requested. - Patient states he was doing well on Augmentin, but went on a work trip to [facility], and the toe got worse again, despite being on Augmentin all along. - Continue Vanco and Zosyn for now. (3) Type 1 diabetes Comment: - Follows a [facility]. - Uses an insulin pump, but last A1c was 10.4 - will request Endocrinology input. (4) CKD stage 4 due to type 1 diabetes mellitus Comment: - GFR at baseline - continue to monitor. (5) DVT prophylaxis Comment: - SQ heparin. (6) Full code status Status and Disposition: Inpatient. Failed outpatient treatment with Augmentin, will likely need outpatient IV antibiotics.
--- NOTE | 2019-01-21 14:17 | CONSULT ---
Consult Consult: [facility] Inpatient Consult Note Date of Consult: 01/21/19 Reason for Consult: T1DM Reason for Admission: osteomyelitis of the foot ASSESSMENT: 58 yo M with long-standing T1DM, now presenting with non-healing osteomyelitis of R foot in setting of uncontrolled T1DM. Previously, he has been able to achieve A1c <8% with current insulin pump settings. It is likely that RLE infection is contributing to hyperglycemia and is causing delayed healing. His insulin requirement is approximately 50-60 units/day, which he is currently delivering via the settings below. PLAN: - check fructosamine this admission (A1c is unreliable in patients with advanced CKD) - continue insulin pump with current settings during this admission - recommend 10% increase in basal rates if fasting BG>180 as inpatient - patient has sensor-augmented insulin pump at home and plans to start this in the coming weeks - contact information for insulin pump account services representative given to patient ( [email or web address]) - call with questions -- [phone] SUBJECTIVE: History of Present Illness: 58 yo M with history of T1DM >50 years and recently- recognized osteomyelitis of the RLE, now presenting with worsening RLE infection with SIRS. He has been traveling in [facility] for the past 10 days and noted worsening redness and pain in the RLE approximately 3 days prior to admission. Prior to this, he reports improvement in signs/symptoms of infection while on oral antibiotics. He checks fingerstick BG multiple times/day and always uses bolus wizard when he eats. His current insulin pump settings are: 0000 1.8 0500 1.9 1700 2.0 I:C: 4 ISF: 15 Target: 110 IOB: 4 Past Medical History: Medications Prior to Admission: Albuterol inh POWDER (NF) [Proair Respiclick] 1 - 2 puff PO Q6HR PRN 07/30/17 [ History Confirmed 01/20/19] Aspirin EC TAB* [Ecotrin EC Low Dose 81 MG*] 162 mg PO DAILY 07/30/17 [History Confirmed 01/20/19] Atenolol TAB* [Tenormin TAB* 25 MG] 75 mg PO DAILY 07/30/17 [History Confirmed 01/20/19] Atorvastatin* [Lipitor*] 80 mg PO DAILY 07/30/17 [History Confirmed 01/20/19] Cholecalciferol TAB* [Vitamin D TAB*] 2,000 units PO DAILY 07/30/17 [History Confirmed 01/20/19] Hydrochlorothiazide TAB* [Hydrodiuril TAB*] 25 mg PO QAM 07/30/17 [History Confirmed 01/20/19] Insulin ASPART (NF) [Novolog (NF)] 100 unit SUBCUT DAILY 07/30/17 [History Confirmed 01/20/19] Quinapril (NF) [Accupril (NF)] 40 mg PO BID 07/30/17 [History Confirmed 01/20/19 ] Sildenafil (NF) [Viagra (NF)] 50 - 100 mg PO DAILY PRN 07/30/17 [History Confirmed 01/20/19] Temazepam CAP* [Restoril CAP*] 15 - 30 mg PO QPM PRN 07/30/17 [History Confirmed 01/20/19] amLODIPine TAB* [Norvasc 5 mg TAB*] 5 mg PO QPM 07/30/17 [History Confirmed 08/10] Amoxicillin/Clavulanate TAB* [Augmentin TAB 875*] 875 mg PO BID #14 tab [Rx Confirmed 01/20/19] Acetaminophen [Tylenol] 650 mg PO Q4H 01/20/19 [History Confirmed 01/20/19] Inpatient Medications: Acetaminophen (Tylenol Tab*) 650 mg PO Q4H PRN PRN Reason: FEVER/PAIN Amlodipine Besylate (Norvasc Tab*) 5 mg PO QPM [facility] Aspirin (Aspirin Ec Tab*) 162 mg PO DAILY [facility] Last Admin: 01/21/19 08:10 Dose: 162 mg Atenolol (Tenormin Tab*) 75 mg PO DAILY [facility] Last Admin: 01/21/19 08:10 Dose: 75 mg Atorvastatin Calcium (Lipitor*) 80 mg PO DAILY [facility] Last Admin: 01/21/19 08:08 Dose: 80 mg Cholecalciferol (Vitamin D Tab*) 2,000 units PO DAILY [facility] Last Admin: 01/21/19 08:08 Dose: 2,000 units Heparin Sodium (Porcine) (Heparin Vial(*)) 5,000 units SUBCUT Q8HR [facility] Last Admin: 01/21/19 14:33 Dose: 5,000 units Hydrochlorothiazide (Hydrodiuril Tab*) 25 mg PO QAM [facility] Last Admin: 01/21/19 08:10 Dose: 25 mg Cefepime HCl (Maxipime 2 Gm In Dextrose Duplex (*)) 2 gm in 50 mls @ 100 mls/ hr IV Q12H [facility] Last Admin: 01/21/19 14:33 Dose: 100 mls/hr Lisinopril (Prinivil Tab*) 40 mg PO BID [facility]; Protocol Last Admin: 01/21/19 08:10 Dose: 40 mg Allergies/Intolerances: NKDA Social History: Lives with . 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 Denies alcohol or drugs. Family History: Non-contributory. Review of Systems: As above. Fever x48 hours. N/V x12 hours. Jet lag symptoms present. 10 system review otherwise negative. OBJECTIVE: Temp Pulse Resp BP Pulse Ox 98 F 73 16 137/63 96 01/21/19 11:10 01/21/19 11:10 01/21/19 11:10 01/21/19 11:10 01/21/19 11:10 General: alert, pleasant, oriented, no distress ENT: neck supple, no thyromegaly, no bruit is heard Chest: CTAB, no wheezing or crackles CV: RRR, no murmur Abdomen: soft, non-tender Extremities: no edema, distal pulses intact Skin: warm, dry, no rash Neuro: grossly intact motor/sensory in extremities Psych: restricted affect, pleasant Labs: WBC 12.3 10^3/uL (3.5-10.8) H 01/21/19 06:29 RBC 3.93 10^6 /uL (4.18-5.48) L 01/21/19 06:29 Hgb 11.2 g/dL (14.0-18.0) L 01/21/19 06:29 Hct 34 % (42-52) L 01/21/19 06:29 MCV 87 fL (80-94) 01/21/19 06:29 MCH 28 pg (27-31) 01/21/19 06:29 MCHC 33 g/dL (31-36) 01/21/19 06:29 RDW 14 % (10-15) 01/21/19 06:29 Plt Count 257 10^3/uL (150-450) 01/21/19 06:29 MPV 8.9 fL (7.4-10.4) 01/21/19 06:29 Neut % (Auto) 74.5 % 01/21/19 06:29 Lymph % (Auto) 14.0 % 01/21/19 06:29 Louisa % (Auto) 9.2 % 01/21/19 06:29 Eos % (Auto) 1.5 % 01/21/19 06:29 Baso % (Auto) 0.8 % 01/21/19 06:29 Absolute Neuts (auto) 9.2 10^3/ul (1.5-7.7) H 01/21/19 06:29 Absolute Lymphs (auto) 1.7 10^3/ul (1.0-4.8) 01/21/19 06:29 Absolute Monos (auto) 1.1 10^3/ul (0-0.8) H 01/21/19 06:29 Absolute Eos (auto) 0.2 10^3/ul (0-0.6) 01/21/19 06:29 Absolute Basos (auto) 0.1 10^3/ul (0-0.2) 01/21/19 06:29 Absolute Nucleated RBC 0.0 10^3/ul 01/21/19 06:29 Nucleated RBC % 0.0 01/21/19 06:29 Sodium 137 mmol/L (135-145) 01/21/19 06:29 Potassium 4.3 mmol/L (3.5-5.0) 01/21/19 06:29 Chloride 107 mmol/L (101-111) 01/21/19 06:29 Carbon Dioxide 22 mmol/L (22-32) 01/21/19 06:29 Anion Gap 8 mmol/L (2-11) 01/21/19 06:29 BUN 53 mg/dL (6-24) H 01/21/19 06:29 Creatinine 2.60 mg/dL (0.67-1.17) H 01/21/19 06:29 Est GFR ( Amer) 30.8 (>60) 01/21/19 06:29 Est GFR (Non-Af Amer) 25.5 (>60) 01/21/19 06:29 BUN/Creatinine Ratio 20.4 (8-20) H 01/21/19 06:29 Glucose 270 mg/dL (70-100) H 01/21/19 06:29 POC Glucose (mg/dL) 134 mg/dL (70-100) H 01/21/19 12:02 Lactic Acid 1.3 mmol/L (0.5-2.0) 01/20/19 21:32 Calcium 7.5 mg/dL (8.6-10.3) L 01/21/19 06:29 Total Bilirubin 0.60 mg/dL (0.2-1.0) 01/20/19 21:32 AST 67 U/L (13-39) H 01/20/19 21:32 ALT 69 U/L (7-52) H 01/20/19 21:32 Alkaline Phosphatase 150 U/L (34-104) H 01/20/19 21:32 C-Reactive Protein 72.56 mg/L (<8.01) H 01/20/19 21:32 Total Protein 7.2 g/dL (6.4-8.9) 01/20/19 21:32 Albumin 3.7 g/dL (3.2-5.2) 01/20/19 21:32 Globulin 3.5 g/dL (2-4) 01/20/19 21:32 Albumin/Globulin Ratio 1.1 (1-3) 01/20/19 21:32 Urine Color Yellow 01/21/19 06:34 Urine Appearance Cloudy 01/21/19 06:34 Urine pH 5.0 (5-9) 01/21/19 06:34 Ur Specific Driver 1.013 (1.010-1.030) 01/21/19 06:34 Urine Protein 2+(100 mg/dl) (Negative) A 01/21/19 06:34 Urine Ketones Negative (Negative) 01/21/19 06:34 Urine Blood 1+ (Negative) A 01/21/19 06:34 Urine Nitrate Negative (Negative) 01/21/19 06:34 Urine Bilirubin Negative (Negative) 01/21/19 06:34 Urine Urobilinogen Negative (Negative) 01/21/19 06:34 Ur Leukocyte Esterase Negative (Negative) 01/21/19 06:34 Urine WBC (Auto) Trace(0-5/hpf) (Absent) 01/21/19 06:34 Urine RBC (Auto) Trace(0-2/hpf) (Absent) 01/21/19 06:34 Ur Squamous Epith Cells Present (Absent) A 01/21/19 06:34 Urine Bacteria Absent (Absent) 01/21/19 06:34 Urine Yeast Present (Absent) A 01/21/19 06:34 Urine Glucose 1+(50 mg/dl) (Negative) A 01/21/19 06:34
[2019-01-21] MEDS: Cefepime 2 GM in Dextrose(*) 2 GM/50 ML BAG IV SCH (14:33)
--- NOTE | 2019-01-21 14:35 | CONS ---
CONSULTATION REPORT: DATE OF CONSULT: 01/21/19 PRIMARY CARE PROVIDER: Dr. Presley Pantoja. PROVIDER REQUESTING CONSULTATION: Dr. Stef Lange. CONSULTING SERVICE: Infectious disease. PROVIDER: Alejandro Bray NP. ATTENDING PROVIDER: Dr. Mk Story.* (DICTATED BY ALEJANDRO BRAY NP) REASON FOR CONSULTATION: Right foot infection with possible osteomyelitis. IMPRESSION: 1. Right foot infection: The patient has cellulitis and I suspect osteomyelitis of the right first toe. His initial MRI was not definitive for diagnosis of osteomyelitis and he had a bone fragment biopsy showing chronic osteomyelitis. He is afebrile. He had some mild leukocytosis. Previous wound cultures growing Propionibacterium acnes, Enterococcus faecalis, and Ochrobactrum anthropi. Continues to have a wound to the plantar aspect of the right 1st toe. He has been seen by ID, and the wound clinic for this outpatient. 2. Diabetes mellitus type 1. 3. Chronic kidney disease stage 4. PLAN: Recommend discontinuing Vancomycin and Zosyn. Start cefepime 2gm IV every 12 hours, for pseudomonal coverage. If he develops an area that is able to be cultured, we could get another wound culture. Recommend repeating an MRI to evaluate further for osteomyelitis. Suspect he is going to need long-term antibiotics to treat an osteomyelitis. HISTORY OF PRESENT ILLNESS: Mr. Howe is a 58-year-old male with a past medical history significant for type 1 diabetes, chronic kidney disease stage 4 , asthma, hyperlipidemia, hypertension, peripheral neuropathy, and anxiety who initially back in September stubbed his toe resulting in inflammation and infection at the base of the rigth 1st toenail. He was treated with a course of antibiotics and this improved. Then, after being on a work trip and wearing ill -fitting shoes, he developed a blister on the plantar aspect of his right first toe. He again was placed on antibiotics. He had had a wound culture, showing Enterococcus faecalis and Ochrobactrum anthropi and Propionibacterium acnes. He was referred to orthopedics and then also seen in the Wound Clinic. He had a bone biopsy obtained at the wound clinic showing chronic osteomyelitis. Additionally, he had an MRI on 12/30/18 showing findings most consistent with osteomyelitis involving the distal phalanx of the right great toe. The patient has continued to follow with the Wound Clinic with local wound treatments, iodoform dressings. The patient was continued to be followed by ID, placed on Augmentin while he went on a trip to [facility] for work. He recently traveled to [facility] for about 10 days for a work trip. 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 He has been wearing an off loading shoe. He states that he felt as though the wound was healing and it had looked really well until 2 to 3 days ago, when he noticed that the right first toe was red and swollen. On his trip, he reports that the pain did increase in the right foot and right 1st toe. Yesterday, he developed fevers, chills, sweating, and vomiting after returning from his trip. He presented to the emergency room for further evaluation. While in the emergency room, he had labs remarkable for leukocytosis with a white blood cell count of 15.2. His BUN and creatinine were elevated, but he has chronic kidney disease stage 4 at baseline. CRP is 72.56. While in the emergency room, he received Zosyn and vancomycin and was referred to the hospitalist service for admission. The patient was continued on vancomycin and Zosyn. He denies any fevers, chills , muscle pain, joint pain, rash, diarrhea, urinary symptoms such as urgency, frequency, dysuria. PAST MEDICAL HISTORY: 1. Hypertension. 2. Hyperlipidemia. 3. Asthma. 4. Chronic kidney disease stage 4. 5. Diabetes mellitus type 1. 6. Peripheral neuropathy. 7. Anxiety. PAST SURGICAL HISTORY: Status post bilateral vitrectomy. MEDICATIONS: Home medications include: 1. Acetaminophen 650 mg by mouth every 4 hours as needed for fever or pain. 2. Amlodipine 5 mg by mouth every evening. 3. Restoril 5 to 30 mg by mouth every evening as needed for sleep. 4. Viagra 50 to 100 mg by mouth daily as needed for erectile dysfunction. 5. Quinapril 40 mg by mouth twice daily. 6. NovoLog insulin subcutaneously via insulin pump. 7. Hydrochlorothiazide 25 mg by mouth every morning. 8. Vitamin D 2000 units by mouth daily. 9. Atorvastatin 80 mg by mouth daily. 10. Atenolol 75 mg by mouth daily. 11. Aspirin 162 mg by mouth daily. 12. Augmentin 875 mg by mouth twice daily. 13. ProAir RespiClick 1 to 2 puffs inhalation every 6 hours as needed for shortness of breath or wheeze. Hospital Medications: 1. Acetaminophen 650 mg by mouth every 4 hours as needed for fever or pain. 2. Norvasc 5 mg by mouth every evening. 3. Aspirin 162 mg by mouth daily. 4. Atenolol 75 mg by mouth daily. 5. Atorvastatin 81 mg by mouth daily. 6. Vitamin D 2000 units by mouth daily. 7. Heparin sodium 5000 units subcutaneous every 8 hours. 8. Hydrochlorothiazide 25 mg by mouth every day. 9. Lisinopril 40 mg by mouth twice daily. 10. Zosyn 3.375 g IV every 8 hours. 11. Vancomycin 1000 mg IV daily. ALLERGIES: No known drug allergies. FAMILY HISTORY: Mother and father with history of heart disease and cancer. SOCIAL HISTORY: Denies tobacco, alcohol, or recreational drug use. REVIEW OF SYSTEMS: I performed a 10-point review of systems. All the pertinent positives and negatives are mentioned in the history of present illness. The remaining review of systems is negative. PHYSICAL EXAMINATION: Vital Signs: Temperature 97.5, heart rate 66, respiratory rate 16, O2 sat is 99% on room air, blood pressure 137/66. General Appearance: Alert, pleasant, and appears to be in no acute distress. Head: Normocephalic, atraumatic. ENT: Extraocular movements are intact. Moist mucous membranes. Neck: Supple. No lymphadenopathy. Neurological: Alert and oriented x4. Cranial nerves II through XII are grossly intact. Cardiovascular : Regular rate and rhythm. S1, S2 present. No murmurs, rubs, or gallops heard. Respiratory: No accessory muscle use. Lungs are clear to auscultation bilateral. Abdomen: Bowel sounds present x4. Abdomen is soft, nontender, nondistended. Extremities: DP and PT pulses are 1+ and symmetric. There is mild edema to the right forefoot and right first toe. Musculoskeletal: No clubbing or cyanosis noted. The patient exhibits good strength in all extremities. Psychological: Calm and cooperative. Skin: There is erythema to the right first toe extending into the forefoot. Additionally, edema to the right first toe. There is what appears to be an open blister on the lateral aspect of the first toe measuring 0.8 x 0.4 x 0.1 cm. Additionally, there is a healing wound to the plantar aspect of the right first toe that is 1 x 0.4 x 0.1 cm. Unable to evaluate the wound base as there appears to be a scab present. The wound is surrounded by a callus. There is no erythema surrounding this area and no drainage noted from either wound. DIAGNOSTIC STUDIES/LABORATORY DATA: Sodium 137, potassium 4.3, chloride 107, CO2 of 22, BUN 53, creatinine 2.60, glucose 270. White blood cell count 12.3, hemoglobin 11.2, hematocrit 32, platelet count 257. CRP 72.56, up from 6.79 and 5.3. Please see impression and recommendations outlined above. Thank you for asking us to see Mr. Howe in consultation. Recommendations had been discussed with Dr. Stef Lange, hospitalist. The case has been discussed with my attending, Dr. Mk Story, who agrees with the plan of care. Reviewed by STELLA ENG 01/26/19 2014 [id number]/[facility] #: [id number] MTDAnup
[2019-01-21] MEDS ORDERED: amLODIPine TAB* 5 MG PO SCH (18:00)
--- NOTE | 2019-01-21 19:29 | CONSULT ---
Subjective Date of Service: 01/21/19 Interval History: Mr. Howe is a 58 yo male with PMH significant for DM1, HTN, HLD, asthma, CKD stage 4, peripheral neuropathy, and anxiety. He has been being treated by ID as an outpatient since early October 2018, initially for Paroncyia after stubbing his right 1st toe and then for a blister with associated cellulitis on the plantar aspect of the right 1st toe. He has also been seen by the wound clinic and is being worked up for HBO treatments. He recently traveled to [facility] for work and was on Augmentin, while on the trip he developed fever and chills. 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 He presented to the emergency room due to concern for worsening infection after returning home from his trip. Patient presented to the hospital with a known wound to the plantar aspect of the right 1st toe. Patient seen and examined at bedside. Family History: Unchanged from Admission Social History: Unchanged from Admission Past Medical History: Unchanged from Admission Review of Systems - Measurements Intake and Output: Intake and Output Last 24 Hours 01/19/19 01/20/19 01/21/19 01/22/19 06:59 06:59 06:59 06:59 Intake Total 1390 870 Balance 1390 870 Weight 210 lb 210 lb Intake: IV Fluids 1040 vanco 20 zozyn 20 IVPB 350 150 cefepime 50 vanco 250 zozyn 100 100 Oral 720 Other: Date of Last Bowel 01/20/19 Movement # Bowel Movements 0 # Voids 1 - Review of Systems Constitutional Symptoms: Negative: Fever, Other - Chills Dermatology: Positive: Other - Ulcer to right 1st toe Endocrinology: Positive: Diabetes Mellitus Objective Active Medications: Acetaminophen (Tylenol Tab*) 650 mg PO Q4H PRN Reason: FEVER/PAIN Aspirin (Aspirin Ec Tab*) 162 mg PO DAILY [facility] Atenolol (Tenormin Tab*) 75 mg PO DAILY [facility] Atorvastatin Calcium (Lipitor*) 80 mg PO DAILY [facility] Cholecalciferol (Vitamin D Tab*) 2,000 units PO DAILY [facility] Heparin Sodium (Porcine) (Heparin Vial(*)) 5,000 units SUBCUT Q8HR [facility] Hydrochlorothiazide (Hydrodiuril Tab*) 25 mg PO QAM [facility] Cefepime HCl (Maxipime 2 Gm In Dextrose Duplex (*)) 2 gm in 50 mls @ 100 mls/ hr IV Q12H [facility] Lisinopril (Prinivil Tab*) 40 mg PO BID [facility]; Protocol Vital Signs - 8 hr 01/21/19 01/21/19 15:52 19:00 Temperature 98.6 F 99.4 F Pulse Rate 65 82 Respiratory 16 14 Rate Blood Pressure 139/70 166/72 (mmHg) O2 Sat by Pulse 99 99 Oximetry Oxygen Devices in Use Now: None Appearance: NAD, laying in bed Ears/Nose/Mouth/Throat: Mucous Membranes Moist Respiratory: Symmetrical Chest Expansion and Respiratory Effort Cardiovascular: - - 2+ PP bilateral Extremities: No Edema Skin: - - See skin note below Neurological: Alert and Oriented x 3 Lines/Tubes/Other Access: Clean, Dry and Intact Peripheral IV Nutrition: Taking PO's Result Diagrams: 01/22/19 06:09 01/23/19 05:28 Additional Lab and Data: Above labs were pulled into the note when edited prior to signing, please see labs from day of consultation below Laboratory Tests 01/20/19 01/21/19 01/21/19 21:32 06:29 06:29 WBC 12.3 H Hgb 11.2 L Hct 34 L Plt Count 257 Sodium 137 Potassium 4.3 Chloride 107 Carbon Dioxide 22 BUN 53 H Creatinine 2.60 H Glucose 270 H C-Reactive Protein 72.56 H Diagnostic Imagin. Exam Date: 12/30/18 - MRI LOWER EXTREMITY RIGHT W/O IMPRESSION: FINDINGS MOST CONSISTENT WITH OSTEOMYELITIS INVOLVING THE DISTAL PHALANX OF THE RIGHT GREAT TOE. 2. Exam Date: 12/25/18 - VL ANK/BRACHIAL INDICES Right: Value (SBP) Index Brachial: 142 Posterior tibialis: Noncompressible Dorsalis pedis: Noncompressible Digit: 49 0.35 Left: Value (SBP) Index Brachial: 134 Posterior tibialis: Noncompressible Dorsalis pedis: Noncompressible Digit: 87 0.61 Doppler waveforms (acquired at rest): In the interrogated lower extremity arteries, Doppler waveforms are triphasic in all distributions except the right posterior tibial artery which is biphasic. There is noticeably reduced arterial waveform amplitude of the right digit relative to the left digit. Volume pulse recordings (acquired at rest): Volume pulse recordings, measured at the bilateral ankles, are symmetric. IMPRESSION: Noncompressibility of the bilateral infrapopliteal arteries is likely due to advanced calcified atherosclerosis. Claudication values are recorded at the bilateral digital arteries, worse on the right than the left corresponding to the reported site of the chronic wound. If further vascular imaging is indicated, the anticipated calcified atherosclerosis will limit the diagnostic utility of CTA with runoff. Catheter arteriography is advised. Skin Deviation Note - Skin Deviation Findings Right plantar aspect of 1st toe - There is a calloused area with a scabbed area in the center. The scabbed area measures 1 cm x 0.4 cm x 0.1 cm. There is no surrounding erythema. Dorsal aspect of the right foot - There is mild erythema to the right 1st toe, extending into the forefoot and midfoot. There is what appears to be an open blister to the inner lateral aspect of the right 1st toe, this measures 0.8 cm x 0.4 cm x 0.1 cm. The wound base is pink granulation tissue. Assessment/Plan: Mr. Howe is a 58 yo male with PMH significant for DM1, HTN, HLD, asthma, CKD stage 4, peripheral neuropathy, and anxiety who presented to the emergency room with complaints of fever and chills. 1. Healing blister to the plantar aspect of the right 1st toe. Initial wound was secondary to ill fitting shoes. This has been present for several weeks and he is followed by the wound clinic and ID outpatient. Concern for underlying osteomyelitis due to the amount of time the wound has been present. Recommend applying Iodosorb to the open area on the plantar aspect of the 1st toe, followed by a dry dressing. Change the dressing every 3 days and as needed. Should be referred back to the wound clinic at discharge. Could consider vascular referral outpatient for arteriography to further eval blood vessels. 2. Right foot cellulitis. Management per ID and Primary Medicine team. 3. DM1 with CKD. Has an insulin pump. Maintain good glycemic control to allow for wound healing. 4. Diet. Consistent Cabohydrate/Heart Healthy diet. 5. Code Status. Full Code Status. 6. Disposition. Inpatient, disposition per primary medicine team. TIME SPENT: Time for this wound consultation was 20 minutes and 10 minutes was spent with the patient discussing past medical history; assessing, measuring, and photographing the wound. Wound Problem/Plan Is Patient a Wound Clinic Patient: [facility] Current Treatment: Iodosorb, oil emulsion, rolled gauze; change every other day Attending: Odalis Hall
[2019-01-22] MEDS: Cefepime 2 GM in Dextrose(*) 2 GM/50 ML BAG IV SCH ×2 (02:38→13:39)
[2019-01-22] MEDS: Acetaminophen TAB* 325 MG PO PRN ×2 (02:39→16:55)
[2019-01-22] MEDS: Heparin VIAL(*) 5000 UNITS/ML VIAL (FIVE THOUSAND) SUBCUT SCH ×3 (06:02→21:27)
[2019-01-22 06:24] LABS: ABS Basophils 0.1 10^3/ul (0-0.2); ABS Eosinophils 0.4 10^3/ul (0-0.6); ABS Lymphocytes 1.5 10^3/ul (1.0-4.8); ABS Neutrophils 7.9 10^3/ul (1.5-7.7); Eosinophil % 3.6 %; Hematocrit 34 % (42-52); Hemoglobin 11.3 g/dL (14.0-18.0); Lymphocyte % 13.4 %; Mean Corpuscular HGB Conc 33 g/dL (31-36); Mean Corpuscular Hemoglobin 29 pg (27-31); Mean Corpuscular Volume 86 fL (80-94); Mean Platelet Volume 8.4 fL (7.4-10.4); Platelet Count 279 10^3/uL (150-450); Red Blood Count 3.98 10^6 /uL (4.18-5.48); Red Cell Distribution Width 14 % (10-15); White Blood Count 10.8 10^3/uL (3.5-10.8)
[2019-01-22 06:39] LABS: BUN/Creatinine Ratio 14.9 (8-20); EGFR African American 24.7 (>60); EGFR Non-African American 20.4 (>60); Potassium 4.3 mmol/L (3.5-5.0)
[2019-01-22] MEDS: INSULIN PUMP CONTROLLER SCH ×4 (07:44→17:51)
[2019-01-22] MEDS ORDERED: Vancomycin(*) 1,000 MG in NS 0.9% 250 ML* 250 ML IVPB SCH (08:00)
[2019-01-22] MEDS: Cholecalciferol TAB* 1000 UNITS PO SCH (09:13)
[2019-01-22] MEDS: Atorvastatin* 80 MG TAB PO SCH (09:13)
[2019-01-22] MEDS: Atenolol TAB* 25 MG PO SCH (09:14)
[2019-01-22] MEDS: Hydrochlorothiazide TAB* 25 MG PO SCH (09:14)
[2019-01-22] MEDS: Lisinopril TAB* 10 MG PO SCH ×2 (09:15→21:28)
[2019-01-22] MEDS: Aspirin EC TAB* 81 MG TAB.EC PO SCH (09:15)
--- NOTE | 2019-01-22 19:01 | PN ---
Subjective Date of Service: 01/22/19 Interval History: HOSPITALIST PROGRESS NOTE Patient seen and examined at bedside. Care reviewed and d/w Bhavna Ballard RN. He feels better today, but is concerned his toe/forefoot is still red and warm. Family History: Unchanged from Admission Social History: Unchanged from Admission Past Medical History: Unchanged from Admission Objective Active Medications: Acetaminophen (Tylenol Tab*) 650 mg PO Q4H PRN PRN Reason: FEVER/PAIN Last Admin: 01/22/19 16:55 Dose: 650 mg Aspirin (Aspirin Ec Tab*) 162 mg PO DAILY [facility] Last Admin: 01/22/19 09:15 Dose: 162 mg Atenolol (Tenormin Tab*) 75 mg PO DAILY [facility] Last Admin: 01/22/19 09:14 Dose: 75 mg Atorvastatin Calcium (Lipitor*) 80 mg PO DAILY [facility] Last Admin: 01/22/19 09:13 Dose: 80 mg Cholecalciferol (Vitamin D Tab*) 2,000 units PO DAILY [facility] Last Admin: 01/22/19 09:13 Dose: 2,000 units Heparin Sodium (Porcine) (Heparin Vial(*)) 5,000 units SUBCUT Q8HR [facility] Last Admin: 01/22/19 13:39 Dose: 5,000 units Hydrochlorothiazide (Hydrodiuril Tab*) 25 mg PO QAM [facility] Last Admin: 01/22/19 09:14 Dose: 25 mg Cefepime HCl (Maxipime 2 Gm In Dextrose Duplex (*)) 2 gm in 50 mls @ 100 mls/ hr IV Q12H [facility] Last Admin: 01/22/19 13:39 Dose: 100 mls/hr Lisinopril (Prinivil Tab*) 40 mg PO BID [facility]; Protocol Last Admin: 01/22/19 09:15 Dose: 40 mg Vital Signs - 8 hr 01/22/19 01/22/19 11:00 15:25 Temperature 97.5 F 98.3 F Pulse Rate 75 72 Respiratory 17 16 Rate Blood Pressure 141/57 150/65 (mmHg) O2 Sat by Pulse 95 98 Oximetry Oxygen Devices in Use Now: None Appearance: Pleasant middle aged gentleman sitting up in bed in [facility]. Eyes: No Scleral Icterus Ears/Nose/Mouth/Throat: Mucous Membranes Moist Neck: Trachea Midline Extremities: - - Right hallux and forefoot have erythema, but this has not expanded beyond demarcation line; warmth is present, no areas of fluctuation. Small wound on plantar aspect of hallux with no drainage Neurological: Alert and Oriented x 3, NL Muscle Strength and Tone, - - Decreased sensation LE Result Diagrams: 01/22/19 06:09 01/22/19 06:09 Microbiology and Other Data: Microbiology 01/21/19 06:34 Urine Culture - Final Urine No Growth (<1,000 CFU/mL) 01/20/19 21:32 Aerobic Blood Culture - Preliminary Blood Venous No Growth Day 1 Anaerobic Blood Culture - Preliminary No Growth Day 1 01/20/19 21:32 Aerobic Blood Culture - Preliminary Blood Venous No Growth Day 1 Anaerobic Blood Culture - Preliminary No Growth Day 1 Microbiology 01/03/19 09:27 Tissue - Right Big Wound Gram Stain - Final 01/03/19 09:27 Tissue - Right Big Tissue Culture - Final Propionibacterium Acnes 01/03/19 09:12 Tissue - Right Wound Gram Stain - Final 01/03/19 09:12 Tissue - Right Tissue Culture - Final Enterococcus Faecalis Ochromobactrum Anthropi Diagnostic Imagin. Exam Date: 12/30/18 - MRI LOWER EXTREMITY RIGHT W/O IMPRESSION: FINDINGS MOST CONSISTENT WITH OSTEOMYELITIS INVOLVING THE DISTAL PHALANX OF THE RIGHT GREAT TOE. 2. Exam Date: 12/25/18 - VL ANK/BRACHIAL INDICES Right: Value (SBP) Index Brachial: 142 Posterior tibialis: Noncompressible Dorsalis pedis: Noncompressible Digit: 49 0.35 Left: Value (SBP) Index Brachial: 134 Posterior tibialis: Noncompressible Dorsalis pedis: Noncompressible Digit: 87 0.61 Doppler waveforms (acquired at rest): In the interrogated lower extremity arteries, Doppler waveforms are triphasic in all distributions except the right posterior tibial artery which is biphasic. There is noticeably reduced arterial waveform amplitude of the right digit relative to the left digit. Volume pulse recordings (acquired at rest): Volume pulse recordings, measured at the bilateral ankles, are symmetric. IMPRESSION: Noncompressibility of the bilateral infrapopliteal arteries is likely due to advanced calcified atherosclerosis. Claudication values are recorded at the bilateral digital arteries, worse on the right than the left corresponding to the reported site of the chronic wound. If further vascular imaging is indicated, the anticipated calcified atherosclerosis will limit the diagnostic utility of CTA with runoff. Catheter arteriography is advised. 01/22/19 MRI LOWER EXTREMITY RIGHT W/O REPORT AND IMPRESSION: #. Forefoot cellulitis and myositis: There is extensive superficial and deep increased T2 signal throughout the forefoot consistent with cellulitis given the clinical context. No loculated soft tissue plane abscess collection evident. #. Osteomyelitis: there is diffuse T2 hyperintensity within the first distal phalanx with corresponding mild decreased T1 marrow hyperintensity greatest at the base through mid diaphysis. The decreased T1 marrow hyperintensity the prior exam and is consistent with presence of osteomyelitis with progression given the clinical context. No intraosseous abscess collection evident. #. Negative for additional osteomyelitis at the more proximal segment of the great toe or throughout the remainder of the forefoot. #. Negative for fracture or malalignment. Assess/Plan/Problems-Billing Assessment: Mr Howe is a 58 yo M with PMH of type 1 DM (since age 8, managed with insulin pump, follows at [facility]), HTN, dyslipidemia, CKD Stage IV, who presents to ED with worsening edema/erythema of right hallux, found to have cellulitis. - Patient Problems (1) Sepsis Comment: - Presentation compatible with sepsis, with leukocytosis, fever, tachycardia. - Source is right hallux osteomyelitis. (2) Osteomyelitis due to type 1 diabetes mellitus Comment: - Patient is being followed by ID and wound clinic as outpatient. - MRI done 12/30/18 showed osteomyelitis involving the distal phalanx of right hallux. Repeat MRI shows osteo, myositis, but no fluid collection. - Wound culture from 01/03/19 grew Propionibacterium, Enterococcus faecalis, and Ochromobactrum - ID consult appreciated. - Multiple conversations with patient, , Dr Stewart, Lin Bray [employer] - after a lot of back and forth, plan is for outpatient therapy in the Infusion center for 6 weeks (will have peripheral IVs for now) - Daptomycin 500mg/day and Ceftriaxone 2g/day, with weekly CBC, CMP, CRP, CPK. If discharged tomorrow, needs to be at Admissions at 10:15AM for infusion at 10:30AM. (3) TO (acute kidney injury) Comment: - TO on top of CKD stage 4 - multifactorial in the setting of sepsis, Vancomycin use. - Will continue to monitor - anticipate d/c in AM if trending down, with f/u as outpatient. (4) Type 1 diabetes Comment: - Follows [facility]. - Uses an insulin pump, but last A1c was 10.4 - Endocrinology input appreciated. (5) DVT prophylaxis Comment: - SQ heparin. (6) Full code status Status and Disposition: Inpatient. All patient and 's questions answered. S/o give to Dr Hugo.
[2019-01-23] MEDS: Cefepime 2 GM in Dextrose(*) 2 GM/50 ML BAG IV SCH (02:27)
[2019-01-23] MEDS: Acetaminophen TAB* 325 MG PO PRN ×3 (02:33→13:12)
[2019-01-23] MEDS: Heparin VIAL(*) 5000 UNITS/ML VIAL (FIVE THOUSAND) SUBCUT SCH (05:51)
[2019-01-23 06:21] LABS: BUN/Creatinine Ratio 14.1 (8-20); Calcium 8.1 mg/dL (8.6-10.3); EGFR African American 26.3 (>60); EGFR Non-African American 21.8 (>60); Potassium 4.1 mmol/L (3.5-5.0)
[2019-01-23] MEDS: INSULIN PUMP CONTROLLER SCH ×2 (08:46→13:12)
[2019-01-23] MEDS: Lisinopril TAB* 10 MG PO SCH (08:47)
[2019-01-23] MEDS: Hydrochlorothiazide TAB* 25 MG PO SCH (08:47)
[2019-01-23] MEDS: Cholecalciferol TAB* 1000 UNITS PO SCH (08:47)
[2019-01-23] MEDS: Atenolol TAB* 25 MG PO SCH (08:48)
[2019-01-23] MEDS: Aspirin EC TAB* 81 MG TAB.EC PO SCH (08:48)
[2019-01-23] MEDS: Atorvastatin* 80 MG TAB PO SCH (08:49)
[2019-01-23 12:07] VITALS: BP 145/76
--- NOTE | 2019-01-23 12:51 | DS ---
CC: Dr. Presley Pantoja; Dr. Fabricio Mcdonald; Dr. Story.* DISCHARGE SUMMARY: DATE OF ADMISSION: 01/21/19. DATE OF DISCHARGE: 01/23/19. PRIMARY CARE PROVIDER: Dr. Presley Pantoja. CONDITION ON DISCHARGE: Stable. DISPOSITION ON DISCHARGE: To home. DISCHARGE DIAGNOSES: 1. Sepsis, due to right great toe osteomyelitis and cellulitis. 2. Acute kidney injury on chronic kidney disease, stage 3. SECONDARY DIAGNOSES: 1. Diabetes, type 1, on insulin pump. 2. Chronic kidney disease, stage 3. MEDICATIONS ON DISCHARGE: Include: 1. Daptomycin 500 mg daily for a total of 42 days. 2. Ceftriaxone 2 g IV daily for a total of 42 days. Remaining medications are unchanged from admission and include: 1. Insulin pump at the patient's own settings. 2. Tylenol 650 mg on a p.r.n. basis. 3. Albuterol inhaler on p.r.n. basis. 4. Aspirin 162 mg daily. 5. Atenolol 75 mg daily. 6. Lipitor 80 mg daily. 7. Vitamin D3 at 2000 units daily. 8. Hydrochlorothiazide 25 mg daily. 9. Accupril 40 mg b.i.d. 10. Viagra on a p.r.n. basis. 11. Restoril 15 to 30 mg at night p.r.n. CONSULTATIONS DURING THE HOSPITAL STAY: Included Dr. Story from Infectious Diseases and Dr. Guidry, from Endocrinology and Diabetic Management. LABORATORY DATA AND STUDIES DURING THE HOSPITAL STAY: Included: On 01/23/19, sodium was 137, potassium 4.1, chloride 106, carbon dioxide 22, BUN 42, creatinine 2.98. The patient's CBC on 01/22/19 white blood cell count of 10.8, hemoglobin of 11.3, hematocrit of 34 and platelets of 279. Microbiology tests showed negative blood cultures and urine cultures with no growth. Outpatient obtained wound cultures positive for propionibacterium, Enterococcus faecalis and ochrobactrum. Patient's lower extremity MRI on the right obtained on 01/21/19 shows "extensive superficial and deep increased T2 signal throughout the forefoot consistent with cellulitis given the clinical context. No loculated soft tissue plane abscess collection evident. Osteomyelitis. There is a diffuse T2 hyperintensity within the first distal phalanx with corresponding mild decreased T1 marrow hyperintensity, greatest at the base through mild diaphysis. The diffuse T1 marrow hyperintensity in the prior exam is consistent with the presence of osteomyelitis with progression given the clinical context. No intraosseous abscess collection evident. Negative for additional osteomyelitis of the more proximal segment of the great toe or throughout the remainder of the forefoot. Negative for fracture or malalignment." That was the MRI compared with the MRI from 12/30/18 and this MRI was performed on 01/22/19. HOSPITALIZATION COURSE: Grzegorz Howe is a 58-year-old male with a history of diabetes type 1 on insulin pump as well as chronic kidney disease who presented to the hospital with concerns of a foot infection. He has had a chronic right great toe infection for several months now and he had been on outpatient antibiotics. He went to [facility] on a work related trip and when he came back his foot was more swollen and painful and he came into the ED for evaluation. Here he was noted to have a white blood cell count of 15,000 acute kidney injury with creatinine of 2.8 on admission and MRI of the foot that showed progression of his chronic osteomyelitis. He was seen by Infectious Diseases in consultation. Initially he was treated with cefepime, and vancomycin, but when his renal function slightly worsened to a creatinine of 3.15 on 01/22/19, it was switched to cefepime only. Dr. Story saw the patient in consultation and recommended daptomycin and ceftriaxone for 6 weeks after discharge. The patient had arranged an outpatient infusion at our infusion center beginning tomorrow. Due to no availability to place a PICC line today at our hospital, he is going to have a peripheral IV placed at the infusion center and then likely have a PICC placed when feasible at the infusion center. He is recommended to have weekly CMP, CBC, and CRPs to be performed while on the IV antibiotics with the results to be sent to Dr. Story. He was also asked to see Dr. Story approximately 1 to 2 weeks for followup. The patient also was recommended to see his primary care provider in approximately a week. PHYSICAL EXAMINATION AT THE TIME OF DISCHARGE: Blood pressure of 135/53, heart of 73 and regular, respiratory rate 20, oxygen saturation 98% on room air, temperature 98.8. General: This is a pleasant 58-year-old male who is in no acute distress, alert and oriented x3. HEENT: Head atraumatic, normocephalic. Eyes, pupils equal reactive to light and accommodation. Oropharynx clear. Mucosa moist. Neck: Supple. No JVD. No bruit bilaterally. Cardiovascular: Regular rate and rhythm. No murmur. Respiratory: Clear to auscultation bilaterally. Abdomen: Soft, nontender. Bowel sounds are present in all 4 quadrants. Extremities: There is right forefoot edema. There is no ankle edema. There is no clubbing or cyanosis. Pulses are +2 bilaterally. On further evaluation of the skin of the right foot, the patient has a small ulceration at the base of his distal right toe of less than 1 cm. At this point , it is dry and not draining and rather shallow. He also has erythema consistent with cellulitis, reaching to the level of his forefoot with a diameter of approximately 10 cm. There is mild edema of the surrounding tissues. Psychiatric Evaluation: The patient is alert and oriented x3 with no evidence of anxiety or depression. DISPOSITION: Discharged to home. CONDITION ON DISCHARGE: Stable. Please note that this is a short summary of the patient's hospital stay. Please refer to further medical records for details. TIME SPENT: Approximately 45 minutes was spent in the preparation of the patient's discharge. [id number]/CPS #: [id number] MTDD
[2019-01-23] MEDS ORDERED: Cefepime 2 GM in Dextrose(*) 2 GM/50 ML BAG IV SCH (13:00)
[2019-01-24] MEDS ORDERED: Vancomycin Trough Check NOTE FOLLOW UP ONE (07:30)
== END 2019-01-23 15:15 | disposition home or self-care (01) | DRG 720 ==
LOC: ED 19:00 → MED 01-21 01:46
PROVIDERS: ADMIT Internal Medicine; ATTEND Internal Medicine
DX: A41.9 Sepsis, unspecified organism (principal); M86.9 Osteomyelitis, unspecified; N17.9 Acute kidney failure, unspecified; N18.4 Chronic kidney disease, stage 4 (severe); E10.69 Type 1 diabetes mellitus with other specified complication; L03.031 Cellulitis of right toe; E10.22 Type 1 diabetes mellitus with diabetic chronic kidney disease; Z96.41 Presence of insulin pump (external) (internal); I12.9 Hypertensive chronic kidney disease with stage 1 through stage 4 chronic kidney disease, or unspecified chronic kidney disease; E78.5 Hyperlipidemia, unspecified; J45.990 Exercise induced bronchospasm; Z82.61 Family history of arthritis; Z82.3 Family history of stroke; Z83.49 Family history of other endocrine, nutritional and metabolic diseases; Z79.4 Long term (current) use of insulin; Z79.82 Long term (current) use of aspirin; Z80.9 Family history of malignant neoplasm, unspecified
CPT/HCPCS: 36415; 71046; 80048; 80053; 81003; 81015; 82985; 83605; 85025; 86140; 87040; 87086; 99285; A9270-GY; J0692; J1644; J2270; J2405; J2543; J3370

== ENCOUNTER → 2019-05-02 10:17 | Day surgery (SDC) | payer BC ==
[~2019-05-02 10:17] MED LIST: Clopidogrel TAB* 75 MG ONE; Dextrose 50% Syringe 50 ML* 25 GM/50 ML SYRINGE ONE; Heparin 2 UNITS/ML IVPREMIX* 2,000 ML IV ONE; Heparin(*) 1000 UNIT/ML 10 ML VIAL CATH LAB IV ONE; Iodixanol 320 (CONTRAST) 100 ML SDV ONE; LORazepam TAB(*) 1 MG ONE; Lidocaine 1% INJ* 10 MG/ML 30 ML SDV ONE; Midazolam* 1 MG/ML 5 ML VIAL (5 MG) ONE; fentaNYL* 50 MCG/ML 2 ML VIAL (100 MCG VIAL) ONE; nitroGLYCERIN DRIP* 25,000 MCG/250 ML BTL ONE
[2019-05-02 11:24] LABS: ABS Basophils 0.1 10^3/ul (0-0.2); ABS Eosinophils 0.4 10^3/ul (0-0.6); ABS Lymphocytes 1.3 10^3/ul (1.0-4.8); ABS Monocytes 0.5 10^3/ul (0-0.8); ABS Neutrophils 5.2 10^3/ul (1.5-7.7); Eosinophil % 5.2 %; Hematocrit 37 % (42-52); Hemoglobin 12.3 g/dL (14.0-18.0); Lymphocyte % 17.7 %; Mean Corpuscular HGB Conc 34 g/dL (31-36); Mean Corpuscular Hemoglobin 28 pg (27-31); Mean Corpuscular Volume 83 fL (80-94); Mean Platelet Volume 8.5 fL (7.4-10.4); Platelet Count 283 10^3/uL (150-450); Red Blood Count 4.41 10^6 /uL (4.18-5.48); Red Cell Distribution Width 14 % (10-15); White Blood Count 7.5 10^3/uL (3.5-10.8)
[2019-05-02 11:45] LABS: Activated Partial Thrombo Time 41.7 seconds (26.0-38.0); INR 0.97 (0.82-1.09)
[2019-05-02 11:51] LABS: BUN/Creatinine Ratio 17.3 (8-20); Calcium 8.5 mg/dL (8.6-10.3); EGFR African American 33.3 (>60); EGFR Non-African American 27.5 (>60); Potassium 4.4 mmol/L (3.5-5.0)
[2019-05-02 16:12] VITALS: BP 123/82
--- NOTE | 2019-05-02 16:49 | PN ---
Progress Note - Progress Note Date of Service: 05/02/19 SOAP: Subjective: No pain complaints in the right groin or right leg. Denies nausea, CP or SOB. Objective: Selected Entries 05/02/19 16:05 Heart Rate 61 Respiratory 13 Rate Blood Pressure 123/82 (mmHg) Blood Pressure 99 Mean O2 Sat by Pulse 99 Oximetry NAD, Sitting up eating lunch Left groin is soft, nontender Dressing is CDI 2+ pulse at right DIET KITCHEN COOK, pop, DPA and PLACER MINER Right foot is warm to touch Right foot motor function is grossly intact Assessment: 58 YOM s/p right leg CARBON DIOXIDE angiography, balloon angioplasty of right plantar artery, PLACER MINER and TPT followed by percutaneous closure with AngioSeal arterial closure device. The AngioSeal device malfunctioned (the suture became detached from the inside of the deployment tool) requiring the technologist and I to manually deploy the device. Percutaneous was ultimately achieved and there are no signs of embolism or other arterial compromise. Plan: 1. Plavix 75 mg PO daily x 90 days. 2. Continue wound and antibiotic care. 3. Routine follow up will include IR clinic visit in 1 month.
== END | disposition home or self-care (01) ==
LOC: CHICATH 10:17
PROVIDERS: ATTEND Radiology Diagnostic Radiology
DX: I70.235 Atherosclerosis of native arteries of right leg with ulceration of other part of foot (principal); E10.621 Type 1 diabetes mellitus with foot ulcer; L97.519 Non-pressure chronic ulcer of other part of right foot with unspecified severity; Z79.4 Long term (current) use of insulin
CPT/HCPCS: 36415; 76937; 80048; 85025; 85610; 85730; 99156; 99157; A9270-GY; C1725; C1760; C1769; C1887; C1894; J1644; J2250; J3010